=== PATIENT | male | born 1935 | race Caucasian/White ===

== ENCOUNTER 2019-07-27 08:19 | Outpatient (RCR) | payer MEDICARE, SELFPAY | END 2019-08-15 00:01 | LOC: SPT 08:19 | PROVIDERS: Family Provider Family Medicine; Visit Provider Family Medicine | DX: M25.511 Pain in right shoulder (principal) | CPT/HCPCS: 97110; 97161 ==

== ENCOUNTER 2019-08-16 06:00 | Outpatient (RCR) | payer MEDICARE, SELFPAY | END 2019-08-22 23:00 | disposition home or self-care (01) | LOC: SPT 06:00 | PROVIDERS: Family Provider Family Medicine; PCP Family Medicine; Visit Provider Family Medicine | DX: M25.511 Pain in right shoulder (principal) ==

== ENCOUNTER → 2019-10-12 08:47 | Outpatient (BNVA) | payer MEDICARE, SELFPAY | PROVIDERS: Family Provider Family Medicine; PCP Family Medicine; Visit Provider Nurse Practitioner Family | DX: N40.1 Benign prostatic hyperplasia with lower urinary tract symptoms (principal); R97.20 Elevated prostate specific antigen [PSA]; N13.8 Other obstructive and reflux uropathy | CPT/HCPCS: 81001; 84153 ==

== ENCOUNTER → 2020-02-13 07:46 | Outpatient (BNVA) | payer MEDICARE, SELFPAY | PROVIDERS: Family Provider Family Medicine; PCP Family Medicine; Referring Provider Family Medicine; Visit Provider Specialist | DX: G56.01 Carpal tunnel syndrome, right upper limb (principal); R20.0 Anesthesia of skin; R20.2 Paresthesia of skin | CPT/HCPCS: 95908 ==

== ENCOUNTER → 2020-04-01 14:35 | Outpatient (BNVA) | payer MEDICARE, SELFPAY | PROVIDERS: Family Provider Family Medicine; PCP Family Medicine; Referring Provider Family Medicine; Visit Provider Specialist | DX: G56.01 Carpal tunnel syndrome, right upper limb (principal) | CPT/HCPCS: 73110 ==

== ENCOUNTER → 2020-04-03 10:32 | Outpatient (BNVA) | payer MEDICARE, SELFPAY | PROVIDERS: PCP Family Medicine; Visit Provider Internal Medicine | DX: G56.01 Carpal tunnel syndrome, right upper limb (principal); Z20.828 Contact with and (suspected) exposure to other viral communicable diseases | CPT/HCPCS: 87635 ==

== ENCOUNTER 2020-04-05 06:27 | Day surgery (SDC) | payer MEDICARE, SELFPAY ==
[2020-04-04 14:40] VITALS: BMI 30.4
[2020-04-05 06:38] VITALS: PULSE 77; RESP 18; TEMP 36.8; O2SAT 98
--- NOTE | 2020-04-05 06:57 | W.PM.OPSUD ---
Surgery/Procedure H&P Update DATE OF PROCEDURE: April 05, 2020 DATE H&P PERFORMED: 04/01/20 H&P UPDATE INFORMATION: I have reviewed H&P completed within last 30 days, I have examined patient prior to procedure, No changes to prior documentation and H[place] in [facility] [place] date indicated PREOP DIAGNOSIS: Right carpal tunnel syndrome PLANNED PROCEDURE: Operation Date: 04/05/20 07:55 Proposed Procedures p Carpal Tunnel Release 57652 G56.01(Right) - Jessica Hernández MD Related Problem List Diagnoses (1) Right carpal tunnel syndrome:
[2020-04-05] MEDS: sodium chloride 0.9% 1,000 ML 30 ML IV (07:03)
[2020-04-05 07:11] LABS: Basophils # 0.1 10^3/uL (0.0-0.1); Eosinophils # 0.4 10^3/uL (0.0-0.8); Eosinophils % 5.7 %; Hematocrit 38.3 % (42.0-52.0); Hemoglobin 12.1 g/dL (11.7-16.6); Lymphocytes # 1.5 10^3/uL (0.8-4.8); Mean Corpuscular HGB Conc 31.6 g/dL (30.0-36.0); Mean Corpuscular Hemoglobin 27.4 pg (28.0-34.0); Mean Corpuscular Volume 86.8 fL (80-94); Mean Platelet Volume 9.5 fL (7.4-10.4); Monocytes # 0.5 10^3/uL (0.2-0.9); Monocytes % 8.4 %; Neutrophils # 3.81 10^3/uL (1.8-7.7); Neutrophils % 60.6 %; Nucleated Red Blood Cells % 0 %; Platelet Count 182 10^3/cmm (130-400); Red Blood Count 4.41 10^6/uL (4.1-5.3); Red Cell Distribution Width 14.3 % (12.1-15.1); White Blood Count 6.3 10^3/uL (4.0-10.0)
[2020-04-05 07:29] LABS: Alanine Aminotransferase 20 U/L (0-41); Albumin Level 4.1 g/dL (3.5-5.2); Alkaline Phosphatase 69 IU/L (40-130); Blood Urea Nitrogen 22 mg/dL (8-23); Calcium 9.5 mg/dL (8.5-10.5); Carbon Dioxide 25 mmol/L (22-29); Chloride 107 mmol/L (98-107); Creatinine Clr Calc Pharmacy 50.1195; Globulin 2.6 g/dL (1.3-4.6); Glucose 101 mg/dL (65-115); Osmolality Calculated 287 mOsm/kg (285-295); Sodium 140 mmol/L (136-145); Total Bilirubin 0.6 mg/dL (0.15-1.2); Total Protein 6.7 g/dL (6.6-8.7)
--- NOTE | 2020-04-05 07:29 | P.ANESASSM_ITS ---
Pre-Anesthetic Assessment Pre-Anesthetic Assessment: Height/Weight: Height 1.73 m Weight 90.718 kg Temp Pulse Resp Pulse Ox 98.2 F 77 18 98 04/05/20 06:38 04/05/20 06:38 04/05/20 06:38 04/05/20 06:38 Preop Diagnosis: Right carpal tunnel syndrome Proposed Procedure: Operation Date: 04/05/20 07:55 Proposed Procedures p Carpal Tunnel Release 05192 G56.01(Right) - Jessica Hernández MD Was Beta Wilma taken within 24 hours: N/A Social: Social History: No alcohol and No tobacco Exam: Pre-Anes Outpt Exam: oriented x 3, clear to auscultation bilaterally and regular rate & rhythm Airway: Submandibular: WNL Cervical ROM: WNL MP: 2 Dentition: False Pulmonary: Pulmonary: COPD CV/HEM: CV/HEM: Anemia, HTN and PVD Comments: s/p RCEA : : Chronic renal Insufficiency Hepatic: Hepatic: None reported GI: GI: GERD Metabolic: Metabolic: None reported Musc/skel: Musc/skel: None reported Neuropsych: Neuropsych: None reported Anesthetic Plan: ASA status: 3 Anesthesia: MAC Other: Basehor block Risk of > 500 ml blood loss (7ml/kg in children): No Meds/Allergies Current Medications: Current Medications Generic Name Dose Route Start Last Admin Trade Name Freq PRN Reason Stop Dose Admin Sodium Chloride 1,000 mls @ 30 ml s/hr 04/05/20 06:45 04/05/20 07:03 Sodium Chloride 0.9% IV 04/06/20 06:44 30 mls/hr .Q24H KEISHA Administration PFSH Anesthesia PFSH: Medical History Abnormal prostate exam BPH w urinary obs/LUTS Elevated PSA Surgical History H/O partial resection of colon H/O transurethral resection of prostate H/O umbilical hernia repair H/O: vasectomy History of knee replacement BILATERAL Hx of tonsillectomy Family History Father , AT AGE 75 CHF (congestive heart failure) Mother , AT AGE 92-COMPLICATIONS FROM A FALL No problems noted. Social History Smoking and tobacco status: former smoker Alcohol intake: current Alcohol intake frequency: holidays/special occasions only Marital status: Current occupational status: retired History of recent travel: No Data Anesthesia CBC & Chem 7: 04/05/20 06:58 04/05/20 06:58 Other Labs: Laboratory Results - last 48 hr 04/05/20 04/05/20 06:58 06:58 WBC 6.3 RBC 4.41 Hgb 12.1 Hct 38.3 L MCV 86.8 MCH 27.4 L MCHC 31.6 RDW 14.3 Plt Count 182 MPV 9.5 Neut % (Auto) 60.6 Lymph % (Auto) 24.0 [place] % (Auto) 8.4 Eos % (Auto) 5.7 Baso % (Auto) 1.0 Neut # (Auto) 3.81 Lymph # (Auto) 1.5 [place] # (Auto) 0.5 Eos # (Auto) 0.4 Baso # (Auto) 0.1 Nucleated RBC % (auto) 0 Nucleated RBCs # 0.0 Sodium 140 Chloride 107 Carbon Dioxide 25 BUN 22 Creatinine 1.2 GFR Calculation Not Reportable Glucose 101 Calculated Osmolality 287 Calcium 9.5 Total Bilirubin 0.6 ALT 20 Alkaline Phosphatase 69 Total Protein 6.7 Albumin 4.1 Globulin 2.6 Cardiac Studies: No Data to Display
[2020-04-05 08:20] LABS: Anion Gap 12.1 (5-19); Aspartate Amino Transferase 27 U/L (0-40); Potassium 4.1 mmol/L (3.5-5.1)
[2020-04-05 08:45] VITALS: BP 116/50; PULSE 68; RESP 18; TEMP 36.2; O2SAT 95
--- NOTE | 2020-04-05 09:01 | P.OP_ITS ---
Operative Report Date of procedure: April 05, 2020 Pre-op Diagnosis: Right carpal tunnel syndrome Post-op diagnosis: same Post-op Findings: Severe compression across the carpal canal with hourglass shape and purplish discoloration of the median nerve. Procedure Done: Right carpal tunnel release Specimens removed/disposition: None Pathology: none sent Surgeon: Jessica Hernández County Director Welfare: None Anesthesia: MAC (With Reina block) Estimated blood loss (mL): 5 Tourniquet time (min): 32 Tourniquet time: At 250 mmHg IV fluids (mL): 300 Complications: None Condition: stable Disposition: same day Brief History: This 84-year-old gentleman presented with complaints of severe pain in the hand secondary to symptoms consistent with carpal tunnel syndrome. He had numbness and tingling. He was unable to continue his activities of daily living. He was awakened at night. The patient wished to proceed with carpal tunnel release. Risks and complications were discussed with him and consents were signed. Procedure: The patient was brought to the operating theater. The patient had a Reina block with MAC. The tourniquet was elevated to 250 mmHg for a total tourniquet time of 32 minutes. The patient was also given Ancef 2 g preoperatively. The arm was then prepped and draped with DuraPrep in usual fashion with the arm draped free. A surgical pause was performed. At the time, the surgical pause, we confirmed the site and side of surgery. We also confirmed the patient's identity, appropriate and timely administration of preoperative antibiotics and preoperative surgical markings. An incision was then made along the thenar crease. The incision crossed the wrist joint in a curvilinear fashion. Dissection continued through skin and soft tissues using a scalpel. The palmaris longus was identified along with the transverse carpal ligament. Each of these was released carefully to avoid injury to the median nerve. We were able to dissect gently into the carpal canal which was noted to be quite tight with significant compression across the median nerve. The nerve was visualized and was an hourglass shape with purplish discoloration. The canal was subsequently palpated to assure there was no bony encroachment upon the canal. There was a quite thickened fibrous tissue within the canal, and this was opened longitudinally as well. The canal was then palpated distally and proximally to assure that my small finger was passed easily without impingement. Finding this to be so, attention was directed to cl janina. The wound was irrigated with ropivacaine plain. It was then closed with 3-0 nylon in an interrupted mattress fashion. Sterile dressing was then placed consisting of Xeroform gauze, fluffed fluffs, sterile soft roll, a volar splint, and an Fox wrap. The tourniquet was released after 32 minutes. There were no complications. There were no specimens. The procedure was well tolerated. Plan is the patient will be discharged home. Associated Problem List Diagnoses (1) Right carpal tunnel syndrome:
[2020-04-05 09:04] VITALS: BP 143/58; PULSE 60; RESP 18; O2SAT 96
--- NOTE | 2020-04-05 09:33 | PM.PACU ---
PACU note PACU note: VSS, good pain control. Post-Anesthesia Exam: awake Disposition: discharged
== END 2020-04-05 09:46 | disposition home or self-care (01) ==
PROVIDERS: PCP Family Medicine; Visit Provider Specialist
PROC: (CPT 64721; principal; 2020-04-05 07:55)
DX: G56.01 Carpal tunnel syndrome, right upper limb (principal); J44.9 Chronic obstructive pulmonary disease, unspecified; D64.9 Anemia, unspecified; I10 Essential (primary) hypertension; Z87.891 Personal history of nicotine dependence
CPT/HCPCS: 64721; 12345; 36415; 80053; 85025; J0690; J2704; J3010; J3490; J7030

== ENCOUNTER → 2020-04-11 14:14 | Outpatient (BNVA) | payer MEDICARE, SELFPAY | PROVIDERS: PCP Family Medicine; Referring Provider Dermatology; Visit Provider Dermatology | DX: Z85.828 Personal history of other malignant neoplasm of skin (principal); L57.0 Actinic keratosis; L85.3 Xerosis cutis; D17.20 Benign lipomatous neoplasm of skin and subcutaneous tissue of unspecified limb; D18.01 Hemangioma of skin and subcutaneous tissue | CPT/HCPCS: 17004; 99203 ==

== ENCOUNTER → 2020-04-15 08:41 | Outpatient (BNVA) | payer MEDICARE, SELFPAY | PROVIDERS: PCP Family Medicine; Visit Provider Urology | DX: R97.20 Elevated prostate specific antigen [PSA] (principal); N13.8 Other obstructive and reflux uropathy; N40.1 Benign prostatic hyperplasia with lower urinary tract symptoms; N48.9 Disorder of penis, unspecified; R39.89 Other symptoms and signs involving the genitourinary system | CPT/HCPCS: 81001; 84153 ==

== ENCOUNTER → 2020-05-10 10:00 | Outpatient (BNVA) | payer MEDICARE, SELFPAY | PROVIDERS: PCP Family Medicine; Visit Provider Urology | DX: N48.1 Balanitis (principal); N48.9 Disorder of penis, unspecified | CPT/HCPCS: 88304; 88305 ==

== ENCOUNTER 2020-07-01 18:37 | Observation (INO) | payer MEDICARE, SELFPAY ==
[2020-07-01 18:55] VITALS: BP 122/76; PULSE 110; RESP 14; TEMP 36.9; O2SAT 97; BMI 31.3
--- NOTE | 2020-07-01 19:07 | CTR_ITS ---
PROCEDURE INFORMATION: Exam: CT Abdomen And Pelvis With Contrast Exam date and time: 07/01/2020 10:47 PM Age: 84 years old Clinical indication: Other: Rectal bleeding; Prior surgery; Surgery date: 6+ months; Surgery type: Colon resection, prostate resection, hernia; Additional info: Gib TECHNIQUE: Imaging protocol: Computed tomography of the abdomen and pelvis with intravenous contrast. Radiation optimization: All CT scans at this facility use at least one of these dose optimization techniques: automated exposure control; mA and/or kV adjustment per patient size (includes targeted exams where dose is matched to clinical indication); or iterative reconstruction. Contrast material: VISI; Contrast volume: 95 ml; Contrast route: INTRAVENOUS (IV); COMPARISON: CT Chest/Abdomen/Pelvis wo IV 08/15/2018 7:59 PM RADIATION DOSE METRICS: Total DLP (mGy-cm): 2621.99 FINDINGS: Lungs: There is an unchanged 5 mm nodule medial left lower lobe image 5. There is subpleural atelectasis of the dependent portions of the lungs. Liver: Unremarkable.No mass. Gallbladder and bile ducts: There has been a cholecystectomy. There is no common bile duct dilation. Pancreas: Normal. No ductal dilation. Spleen: Normal. No splenomegaly. Adrenal glands: Normal. No mass. Kidneys and ureters: There is no evidence of hydronephrosis. There is no evidence of renal calcifications. There are multiple renal hypodensities that cannot be further characterized on the current examination. Stomach and bowel: There are postoperative changes of a partial right colectomy. Extensive diverticulosis is present in the distal colon. The wall of the distal colon is thickened but collapsed. This appearance may reflect lack of distention however mild colitis cannot be excluded. There is moderately excessive colonic stool content. There is no evidence of intestinal perforation or obstruction. No significant rectal wall thickening. Appendix: No evidence of appendicitis. Intraperitoneal space: Unremarkable. No free air. No significant fluid collection. Vasculature: The aorta demonstrates moderate atherosclerotic calcification. Lymph nodes: Unremarkable.No enlarged lymph nodes. Urinary bladder: There is nonspecific bladder wall thickening. This may be related to incomplete distention. Reproductive: Unremarkable as visualized. Bones/joints: Unremarkable. No acute fracture. Soft tissues: There is small bilateral fat filled inguinal hernias. CT/CT abdomen pelvis w con* [id number] IMPRESSION: 1. The wall of the distal colon is thickened but collapsed. This appearance may reflect lack of distention however mild colitis cannot be excluded. There is diverticulosis without diverticulitis. 2. Unchanged 5 mm nodule medial left lower lobe. Radiation Dose CTDIVOL = (mGy): DLP = 2621.99 (mGy-cm)
[2020-07-01 21:47] LABS: Basophils # 0.1 10^3/uL (0.0-0.1); Eosinophils # 0.1 10^3/uL (0.0-0.8); Eosinophils % 1.2 %; Hematocrit 31.5 % (42.0-52.0); Hemoglobin 10.2 g/dL (11.7-16.6); Lymphocytes # 0.8 10^3/uL (0.8-4.8); Mean Corpuscular HGB Conc 32.4 g/dL (30.0-36.0); Mean Corpuscular Hemoglobin 28.7 pg (28.0-34.0); Mean Corpuscular Volume 88.5 fL (80-94); Mean Platelet Volume 9.7 fL (7.4-10.4); Monocytes # 0.6 10^3/uL (0.2-0.9); Neutrophils % 83.4 %; Nucleated Red Blood Cells % 0 %; Platelet Count 227 10^3/cmm (130-400); Red Blood Count 3.56 10^6/uL (4.1-5.3); Red Cell Distribution Width 14.5 % (12.1-15.1); White Blood Count 9.5 10^3/uL (4.0-10.0)
[2020-07-01 22:02] VITALS: BP 119/60; PULSE 88; O2SAT 97
[2020-07-01 22:08] LABS: Lactate (Lactic Acid level) 1.6 mmol/L (0.5-2.2)
[2020-07-01 22:18] LABS: Partial Thromboplastin Time 31.2 SECONDS (23.9-36.7)
[2020-07-01 22:19] LABS: Alanine Aminotransferase 13 U/L (0-41); Albumin Level 3.6 g/dL (3.5-5.2); Alkaline Phosphatase 62 IU/L (40-130); Anion Gap 15.3 (5-19); Aspartate Amino Transferase 14 U/L (0-40); Blood Urea Nitrogen 25 mg/dL (8-23); Calcium 8.6 mg/dL (8.5-10.5); Carbon Dioxide 21 mmol/L (22-29); Chloride 107 mmol/L (98-107); Glucose 169 mg/dL (65-115); Lipase 26 U/L (13-60); NT Pro B Type Natriuretic Pept 296 pg/mL (0-450); Osmolality Calculated 296 mOsm/kg (285-295); Potassium 4.3 mmol/L (3.5-5.1); Sodium 139 mmol/L (136-145); Total Bilirubin 0.3 mg/dL (0.15-1.2); Total Protein 5.6 g/dL (6.6-8.7)
[2020-07-01 22:21] LABS: Add Urine Microscopic? NO
[2020-07-01 22:37] LABS: Bilirubin Urine Neg (Negative); Blood Urine Neg (Negative); Glucose Urine UA Norm (Normal); Ketones Urine Negative (Negative); Leukocyte Esterase Urine Negative (Negative); Nitrate Urine Negative (Negative); Protein Urine Neg (Negative); Urine Appearance Clear (CLEAR); Urine Color Yellow (Yellow); Urobilinogen Urine Norm (Negative); pH Urine 5 (5-7)
--- NOTE | 2020-07-01 22:41 | W.ED.GIBLEED ---
HPI - GI Bleed General: Chief complaint: GI Bleed Stated complaint: passing blood Time Seen by Provider: 07/01/20 21:22 Source: patient Mode of arrival: ambulatory Limitations: no limitations History of Present Illness: HPI Narrative: Patient is an 84-year-old gentleman who presents to the emergency department with lower GI bleeding. He noticed blood in his stool about 4 PM today and he has had multiple episodes of blood in his stool. It is blood mixed with stool blood is bright red blood. He denies any dizziness, abdominal pain, nausea or vomiting. He denies any fever. In early 2019 he said he had similar symptoms and required surgery at that time at [facility] in [place]. 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 The patient states he has been doing well since then. complaint: gross hematochezia Onset (ago): hour(s) (4) Severity: moderate Relieving factors: none Exacerbating factors: none Context: history of GI bleed Associated symptoms: Denies abdominal pain, chills, easy bruising, epistaxis, fever(s), headache(s), malaise, nausea, other bleeding, poor appetite, rash, syncope, vomiting or weakness Review of Systems General: Reports: 10 or more systems reviewed and unremarkable except in HPI and below Const: Denies: fever(s), chills or malaise Eyes: Denies: change in vision or blurry vision ENMT: Denies: epistaxis Card: Denies: syncope Resp: Denies: dyspnea, productive cough or non-productive cough GI: Denies: abdominal pain, nausea or vomiting : Denies: flank pain, dysuria, urinary frequency, urinary urgency or urinary hesitancy Musc: Denies: neck pain, back pain or extremity swelling Skin/Breast: Denies: rash Neuro: Denies: headache(s) Endo: Denies: polyuria, polydipsia or tired all the time James/Lymph: Denies: easy bruising PFSH ED PFSH: Medical History (Updated 07/02/20 @ 12:42 by Alhaji Urbina MD, [facility]) Abnormal prostate exam BPH w urinary obs/LUTS Elevated PSA History of nonmelanoma skin cancer Surgical History H/O partial resection of colon H/O transurethral resection of prostate H/O umbilical hernia repair H/O: vasectomy History of knee replacement BILATERAL Hx of tonsillectomy Family History Father , AT AGE 75 CHF (congestive heart failure) Mother , AT AGE 92-COMPLICATIONS FROM A FALL No problems noted. Social History Smoking and tobacco status: former smoker Alcohol intake: current Alcohol intake frequency: holidays/special occasions only Marital status: Current occupational status: retired History of recent travel: No Physical Exam Const: COMMON NORMALS: no acute distress, average body habitus, patient oriented x3, no limitations, healthy appearing, alert and well nourished HENMT: COMMON NORMALS: normocephalic, atraumatic and moist oral mucous membranes HEAD & SCALP: normocephalic and atraumatic Eye: COMMON NORMALS: Equal, round and reactive pupils present, EOMs intact bilaterally, conjunctivae normal and no scleral icterus CONJUNCTIVA: Yes conjunctivae normal PUPIL: Yes Equal, round and reactive pupils present Neck/C-Spine: COMMON NORMALS: no meningeal signs and no JVD Resp: COMMON NORMALS: normal respiratory effort, No retractions, No use of accessory muscles, clear to auscultation bilaterally and percussion normal AUSCULTATION: clear to auscultation bilaterally PERCUSSION: percussion normal Cardio: COMMON NORMALS: no JVD, regular rate, regular rhythm, S1 normal heart sound present, S2 normal heart sound present, No gallops present (Cardio), No clicks present (Cardio), No murmurs present (Cardio), No rub (Cardio) and Peripheral pulses 2+ throughout RATE: regular rate RHYTHM: regular rhythm HEART SOUNDS: S1 normal heart sound present and S2 normal heart sound present PERIPHERAL PULSES: Peripheral pulses 2+ throughout GI: COMMON NORMALS: Normal to inspection, nondistended, normoactive bowel sounds present, Soft to palpation, non-tender, No hepatosplenomegaly present, no masses and no bruits PALPATION: Yes Soft to palpation and Yes No hepatosplenomegaly present Extremity: COMMON NORMALS: normal to inspection, full ROM, capillary refill normal and no calf tenderness GENERAL: Yes edema Neuro: COMMON NORMALS: patient oriented x3 SENSORIUM/ORIENTATION: Yes alert MENINGEAL SIGNS: Yes no meningeal signs Skin: COMMON NORMALS: no rashes or lesions noted, no wounds, turgor normal, no jaundice, no petechiae and no mottling GENERAL SKIN EXAM: no rashes or lesions noted and turgor normal Course ED course: 84-year-old male presents to the emergency department with painless lower GI bleeding. While in the emergency department I witnessed 1 episode of his bowel movements and he was frankly bloody with some stool in it. The patient has a hemoglobin drop from about 12.1 3 months ago to about 10.2 today. He is hemodynamically stable. He has had a history of hemicolectomy following a terminal ileum stricture. Because of his high risk he is admitted to the hospital for further evaluation and possible endoscopy. Consultations: Consultation #1: Dr. Muñiz, who kindly accepted the patient to his service. Vital Signs: Vital signs: Vital Signs Temperature 98.0 F 07/02/20 11:23 Pulse Rate 81 07/02/20 11:23 Respiratory Rate 18 07/02/20 11:23 Blood Pressure 99/59 07/02/20 11:23 Pulse Oximetry 99 07/02/20 11:23 MDM - GI Bleed MDM Narrative: Medical decision making narrative: 84-year-old male with lower GI bleeding. He is hemodynamically stable and is admitted for further evaluation and management. Medical Records: Attestation: I reviewed the patient's medical records. Lab Data: Attestation: I reviewed the patient's lab results. Labs: Lab Results 07/01/20 07/01/20 07/01/20 Range/Units 21:30 21:30 21:30 WBC 9.5 (4.0-10.0) 10^3/ uL RBC 3.56 L (4.1-5.3) 10^6/u L Hgb 10.2 L (11.7-16.6) g/dL Hct 31.5 L (42.0-52.0) % MCV 88.5 (80-94) fL MCH 28.7 (28.0-34.0) pg MCHC 32.4 (30.0-36.0) g/dL RDW 14.5 (12.1-15.1) % Plt Count 227 (130-400) 10^3/c mm MPV 9.7 (7.4-10.4) fL Neut % (Auto) 83.4 % Lymph % (Auto) 8.0 % [place] % (Auto) 6.0 % Eos % (Auto) 1.2 % Baso % (Auto) 1.0 % Neut # (Auto) 7.90 H (1.8-7.7) 10^3/u L Lymph # (Auto) 0.8 (0.8-4.8) 10^3/u L [place] # (Auto) 0.6 (0.2-0.9) 10^3/u L Eos # (Auto) 0.1 (0.0-0.8) 10^3/u L Baso # (Auto) 0.1 (0.0-0.1) 10^3/u L Nucleated RBC % (a uto) 0 % Nucleated RBCs # 0.0 /100WBC APTT 31.2 (23.9-36.7) SECO NDS Sodium 139 (136-145) mmol/L Potassium 4.3 (3.5-5.1) mmol/L Chloride 107 (98-107) mmol/L Carbon Dioxide 21 L (22-29) mmol/L Anion Gap 15.3 (5-19) BUN 25 H (8-23) mg/dL Creatinine 1.5 H (0.7-1.2) mg/dL GFR Calculation Not Reportable Glucose 169 H (65-115) mg/dL Calculated Osmolal ity 296 H (285-295) mOsm/k g Lactate (0.5-2.2) mmol/L Calcium 8.6 (8.5-10.5) mg/dL Total Bilirubin 0.3 (0.15-1.2) mg/dL AST 14 (0-40) U/L ALT 13 (0-41) U/L Alkaline Phosphata se 62 (40-130) IU/L NT-Pro-B Natriuret Pep 296 (0-450) pg/mL Total Protein 5.6 L (6.6-8.7) g/dL Albumin 3.6 (3.5-5.2) g/dL Globulin 2.0 (1.3-4.6) g/dL Lipase 26 (13-60) U/L Urine Color (Yellow) Urine Appearance (CLEAR) Urine pH (5-7) Ur Specific Gravit y (1.005-1.030) Urine Protein (Negative) Urine Glucose (UA) (Normal) Urine Ketones (Negative) Urine Blood (Negative) Urine Nitrate (Negative) Urine Bilirubin (Negative) Urine Urobilinogen (Negative) mg/dL Ur Leukocyte Marlen ase (Negative) Blood Type Rho(D) Type Antibody Screen Crossmatch 07/01/20 07/01/20 07/01/20 Range/Units 21:30 21:30 21:50 WBC (4.0-10.0) 10^3/ uL RBC (4.1-5.3) 10^6/u L Hgb (11.7-16.6) g/dL Hct (42.0-52.0) % MCV (80-94) fL MCH (28.0-34.0) pg MCHC (30.0-36.0) g/dL RDW (12.1-15.1) % Plt Count (130-400) 10^3/c mm MPV (7.4-10.4) fL Neut % (Auto) % Lymph % (Auto) % [place] % (Auto) % Eos % (Auto) % Baso % (Auto) % Neut # (Auto) (1.8-7.7) 10^3/u L Lymph # (Auto) (0.8-4.8) 10^3/u L [place] # (Auto) (0.2-0.9) 10^3/u L Eos # (Auto) (0.0-0.8) 10^3/u L Baso # (Auto) (0.0-0.1) 10^3/u L Nucleated RBC % (a uto) % Nucleated RBCs # /100WBC APTT (23.9-36.7) SECO NDS Sodium (136-145) mmol/L Potassium (3.5-5.1) mmol/L Chloride (98-107) mmol/L Carbon Dioxide (22-29) mmol/L Anion Gap (5-19) BUN (8-23) mg/dL Creatinine (0.7-1.2) mg/dL GFR Calculation Glucose (65-115) mg/dL Calculated Osmolal ity (285-295) mOsm/k g Lactate 1.6 (0.5-2.2) mmol/L Calcium (8.5-10.5) mg/dL Total Bilirubin (0.15-1.2) mg/dL AST (0-40) U/L ALT (0-41) U/L Alkaline Phosphata se (40-130) IU/L NT-Pro-B Natriuret Pep (0-450) pg/mL Total Protein (6.6-8.7) g/dL Albumin (3.5-5.2) g/dL Globulin (1.3-4.6) g/dL Lipase (13-60) U/L Urine Color Yellow (Yellow) Urine Appearance Clear (CLEAR) Urine pH 5 (5-7) Ur Specific Gravit y 1.020 (1.005-1.030) Urine Protein Neg (Negative) Urine Glucose (UA) Norm (Normal) Urine Ketones Negative (Negative) Urine Blood Neg (Negative) Urine Nitrate Negative (Negative) Urine Bilirubin Neg (Negative) Urine Urobilinogen Norm (Negative) mg/dL Ur Leukocyte Marlen ase Negative (Negative) Blood Type O Positive Rho(D) Type Positive Antibody Screen Negative Crossmatch See Detail Imaging Data^: CT Abd/Pel: Attestation: I personally reviewed and interpreted this imaging study as follows: Radiologist's impression: [address] [address] [address] Scan Report Signed Patient: Watson Webber #: [id number] : 6Acct#:[id number] Age/Sex: 84 / MADM Date: 07/01/20 Loc: ERRoom/Bed: Attending Dr: Ordering Provider/Ordering MD: Yi Grant Date of Service: 07/01/20 Procedure(s): CT abdomen pelvis w con* [id number] Accession Number(s): [id number] Report Number: [id number] PROCEDURE INFORMATION: Exam: CT Abdomen And Pelvis With Contrast Exam date and time: 07/01/2020 10:47 PM Age: 84 years old Clinical indication: Other: Rectal bleeding; Prior surgery; Surgery date: 6+ months; Surgery type: Colon resection, prostate resection, hernia; Additional info: Gib TECHNIQUE: Imaging protocol: Computed tomography of the abdomen and pelvis with intravenous contrast. Radiation optimization: All CT scans at this facility use at least one of these dose optimization techniques: automated exposure control; mA and/or kV adjustment per patient size (includes targeted exams where dose is matched to clinical indication); or iterative reconstruction. Contrast material: VISI; Contrast volume: 95 ml; Contrast route: INTRAVENOUS (IV); COMPARISON: CT Chest/Abdomen/Pelvis wo IV 08/15/2018 7:59 PM RADIATION DOSE METRICS: Total DLP (mGy-cm): 2621.99 FINDINGS: Lungs: There is an unchanged 5 mm nodule medial left lower lobe image 5. There is subpleural atelectasis of the dependent portions of the lungs. Liver: Unremarkable.No mass. Gallbladder and bile ducts: There has been a cholecystectomy. There is no common bile duct dilation. Pancreas: Normal. No ductal dilation. Spleen: Normal. No splenomegaly. Adrenal glands: Normal. No mass. Kidneys and ureters: There is no evidence of hydronephrosis. There is no evidence of renal calcifications. There are multiple renal hypodensities that cannot be further characterized on the current examination. Stomach and bowel: There are postoperative changes of a partial right colectomy. Extensive diverticulosis is present in the distal colon. The wall of the distal colon is thickened but collapsed. This appearance may reflect lack of distention however mild colitis cannot be excluded. There is moderately excessive colonic stool content. There is no evidence of intestinal perforation or obstruction. No significant rectal wall thickening. Appendix: No evidence of appendicitis. Intraperitoneal space: Unremarkable. No free air. No significant fluid collection. Vasculature: The aorta demonstrates moderate atherosclerotic calcification. Lymph nodes: Unremarkable.No enlarged lymph nodes. Urinary bladder: There is nonspecific bladder wall thickening. This may be related to incomplete distention. Reproductive: Unremarkable as visualized. Bones/joints: Unremarkable. No acute fracture. Soft tissues: There is small bilateral fat filled inguinal hernias. CT/CT abdomen pelvis w con* [id number] IMPRESSION: 1. The wall of the distal colon is thickened but collapsed. This appearance may reflect lack of distention however mild colitis cannot be excluded. There is diverticulosis without diverticulitis. 2. Unchanged 5 mm nodule medial left lower lobe. Radiation Dose CTDIVOL = (mGy): DLP = 2621.99 (mGy-cm) Dictated By:Tatianna Ojeda Signed By:Libby Ojeda Date/Time:07/01/202334 DD/ 32 Discharge Plan Discharge Patient Disposition: Admitted As Inpatient Admit Provider: Cori Muñiz Clinical Impression: Lower gastrointestinal hemorrhage, Acute blood loss anemia, SANTIAGO (acute kidney injury) Condition: Stable Coding Level of Care Code ED Steel Rod Buster for Chg Fwd Exam Comprehensive
[2020-07-01] MEDS: iodixanol 320 mg/mL 100mL Btl IV (23:00)
[2020-07-02] VITALS (8 sets, daily range): BP systolic 99–132; BP diastolic 49–69; PULSE 70–85; RESP 17–18; TEMP 36.4–36.7; O2SAT 96–99
--- NOTE | 2020-07-02 00:26 | P.HP_ITS ---
Providers/Chief Complaint Primary Care Provider: Brendon Rhodes MD Chief Complaint: passing blood History of Present Illness Watson Webber is a 84 year old male who came history of diverticulosis came in with chief complaint of bright bleed per rectum. Patient is stating that he was not constipated for last few days, he has not noticed any diarrhea, abdominal pain nausea or vomiting, today when he went to bathroom he noticed toilet bowl full of blood. He is not on any anticoagulant agent. Previous colonoscopies revealed polyps which were benign in nature and diverticulosis. He is describing bleeding as bright bleed per rectum, he has not noticed any clots or dark-colored stools. He lives alone and is independent for daily activities. No active chest pain shortness of breath nausea, vomiting, fever, cough, headaches, blurry vision. Diagnosis in the ER revealed normal hemodynamics, initially he was tachycardic which improved with fluid resuscitation, he has had 7-10 episodes of large bloody bowel movements in the ER hence decision was made to observe him overnight, at the time of evaluation he is not complaining of active abdominal pain, repeat hemoglobin dropped to 9.8 from 10.2 in few hours. Review of Systems Const: Denies: fever(s), chills, body aches or fatigue Eyes: Denies: change in vision ENMT: Denies: throat pain Card: Denies: chest pain Resp: Denies: dyspnea GI: Reports: hematochezia; Denies: abdominal pain : Denies: flank pain Musc: Denies: neck pain Skin/Breast: Denies: rash Neuro: Denies: headache(s) Psych: Denies: anxiety Endo: Denies: polyuria James/Lymph: Denies: easy bruising All/Imm: Denies: urticaria Medications/Allergies Home Medications Medication Instructions Recorded Confirmed Last Taken Type aspirin 81 mg tablet,delayed 81 mg PO DAILY 10/12/19 07/01/20 07/01/20 History release levothyroxine 75 mcg capsule 75 mcg PO DAILY 10/12/19 07/01/20 07/01/20 History ropinirole 1 mg tablet 4 mg PO DAILY tab 10/12/19 07/01/20 07/01/20 History simvastatin 40 mg tablet 20 mg PO DAILY tab 10/12/19 07/01/20 06/30/20 History triamterene 37.5 1 tab PO DAILY 10/12/19 07/01/20 07/01/20 History mg-hydrochlorothiazide 25 mg tablet Vitamin D3 1 cap PO DAILY 07/01/20 07/01/20 Unknown History tamsulosin 0.4 mg PO BID 07/01/20 07/01/20 Unknown History Allergies Allergy/AdvReac Type Severity Reaction Status Date / Time naproxen [From Aleve] Allergy SWELLING Verified 07/01/20 21:02 ROOF OF MOUTH PFSH Acute PFSH: Medical History (Updated 07/02/20 @ 02:42 by Cori Muñiz MD) Abnormal prostate exam BPH w urinary obs/LUTS Elevated PSA History of nonmelanoma skin cancer Surgical History H/O partial resection of colon H/O transurethral resection of prostate H/O umbilical hernia repair H/O: vasectomy History of knee replacement BILATERAL Hx of tonsillectomy Family History Father , AT AGE 75 CHF (congestive heart failure) Mother , AT AGE 92-COMPLICATIONS FROM A FALL No problems noted. Social History Smoking and tobacco status: former smoker Alcohol intake: current Alcohol intake frequency: holidays/special occasions only Marital status: Current occupational status: retired History of recent travel: No Vitals/I&O/Wt Last Vital Signs Temp 98.5 F 07/01/20 18:55 Pulse 84 07/02/20 00:04 Resp 14 07/01/20 18:55 BP 120/50 07/02/20 00:04 Pulse Ox 98 07/02/20 00:04 Weight last 48 hrs Weight 90.718 kg Physical Exam Narrative: EXAM NARRATIVE: Elderly male Appears younger than stated age Euvolemic No active distress Abdomen distended, nontender, bowel sound present Lower extremity no edema gangrene ulcer S1, S2 no tachycardia or signs of heart failure No active acute respiratory distress EOMI, PERRLA GCS 15 Awake alert oriented x3 Skin does not show any ischemia gangrene or ulcer Lower extremity without any edema Multiple episodes of bright bleed per rectum in the ER Data : 07/02/20 01:39 07/01/20 21:30 A&P Assessment and plan (1) Hematochezia: Status: Acute (2) Acute blood loss anemia: Status: Acute (3) Normocytic anemia: Status: Acute (4) SANTIAGO (acute kidney injury): Status: Acute Additional A&P Information Acute normocytic anemia/lower GI bleed Hematochezia Not on any anticoagulant agent, no history of peptic ulcer disease, previous col onoscopy revealed diverticulosis and benign polyps No diverticulitis noted Patient is not septic, hemodynamically stable I would hold off on transfusion until his hemoglobin drops below 8, keep PRBC on standby Keep him n.p.o., serial H&H His bleeding is most likely diverticular Protonix 40 IV twice daily D5 half-normal saline fluid resuscitation No acute indication for surgical consult, kindly reevaluate in the morning Acute kidney injury Patient has history of BPH, takes tamsulosin at home, monitor urine output, bladder scan as needed, Normal potassium, rule out post renal etiology for increasing creatinine, will obtain renal ultrasound, patient is not taking any nephrotoxic agents at home, there is no significant drop in hemoglobin to cause prerenal SANTIAGO DVT prophylaxis SCDs N.p.o. DNR/DNI, goals of care discussed with the patient in the ER Attestations Medical Necessity Statement*: Anticipating discharge in less than 48 hours continued overnight monitoring because of active hematochezia and drop in hemoglobin Time Spent in Patient Care: (>than 50% of time spent in counselling and/or direct pt care on unit) . 50mins Coding Level of Care Code Acute Employee Communications Manager for Swetha Morton Diagnoses Hematochezia K92.1 Acute blood loss anemia D62 Normocytic anemia D64.9 SANTIAGO (acute kidney injury) N17.9
[2020-07-02 01:52] LABS: Hemoglobin 9.8 g/dL (11.7-16.6)
[2020-07-02] MEDS: dextrose 5%-sod chloride 0.45% 1,000 ML 75 ML IV ×2 (02:51→16:31)
[2020-07-02 04:57] LABS: Basophils # 0.1 10^3/uL (0.0-0.1); Basophils % 0.6 %; Eosinophils % 0.2 %; Hematocrit 30.3 % (42.0-52.0); Hemoglobin 9.3 g/dL (11.7-16.6); Lymphocytes # 0.9 10^3/uL (0.8-4.8); Lymphocytes % 9.3 %; Mean Corpuscular HGB Conc 30.7 g/dL (30.0-36.0); Mean Corpuscular Hemoglobin 28.4 pg (28.0-34.0); Mean Corpuscular Volume 92.4 fL (80-94); Monocytes # 0.5 10^3/uL (0.2-0.9); Neutrophils # 8.24 10^3/uL (1.8-7.7); Neutrophils % 84.5 %; Nucleated Red Blood Cells % 0 %; Platelet Count 207 10^3/cmm (130-400); Red Blood Count 3.28 10^6/uL (4.1-5.3); Red Cell Distribution Width 14.6 % (12.1-15.1); White Blood Count 9.8 10^3/uL (4.0-10.0)
[2020-07-02 05:20] LABS: Anion Gap 15.7 (5-19); Blood Urea Nitrogen 24 mg/dL (8-23); Calcium 8.4 mg/dL (8.5-10.5); Carbon Dioxide 22 mmol/L (22-29); Chloride 107 mmol/L (98-107); Glucose 156 mg/dL (65-115); Osmolality Calculated 297 mOsm/kg (285-295); Potassium 4.7 mmol/L (3.5-5.1); Sodium 140 mmol/L (136-145)
--- NOTE | 2020-07-02 09:36 | PC.CHAP ---
Pastoral Care Encounter/Spiritual Assessment Type of Contact [] Declined terrazzo worker apprentice visit [] Patient/Family/Request visit [] Outpatient visit [] Follow-up visit [] Physician referral [] Code/Alert [x] Routine visit [] Staff referral [] Actively dying [] Patient sleeping [] Family support [] [] Out of room [] Palliative care [] [] Receiving care in room [] Pre-surgical visit [] Trauma [] Long length of stay [] ICU visit [] Other: Relational/Emotional Strength [] Patient feels connected with others/family/visitors/staff [] Distress [] Loneliness/isolation [] Abandonment Spirituality of Patient [] Person of Vi [] Attends Scientologist of their Iv [] Believes in Prayer [] Reads Bible or Pentecostalism materials [] There are Spiritual issues to be addressed Strapper Operator Interventions [x] Prayer [x] Active listening [x] Non-anxious presence [x] Spiritual/emotional support [] Crisis/trauma care [] Spiritual counseling [] Bereavement support [] Provided bereavement packet [] Provided Bible/devotional materials [] Provided toy/stuffed animal, coloring book to patient or family member [] Provided Communion [] Anointing/[place] [] Salvation [x] Completed spiritual assessment [] Other: Impact on Illness or Injury [] Angry [] Fearful [] Anxious [] Often cries [] Exhaustion [] Unable to work [] Unable to attend latter day [] Unable to walk/stand [] Unable to read [] Unable to drive [] Unable to eat/drink [] Unable to sleep [] Unable to be with family [] Patient intubated [] Other: Summary patient feeling better.. wants to go home Time spent with patient 10 min
--- NOTE | 2020-07-02 09:37 | PC.CHAP ---
Pastoral Care Encounter/Spiritual Assessment Type of Contact [] Declined derivatives trader visit [] Patient/Family/Request visit [] Outpatient visit [] Follow-up visit [] Physician referral [] Code/Alert [] Routine visit [] Staff referral [] Actively dying [x] Patient sleeping [] Family support [] [] Out of room [] Palliative care [] [] Receiving care in room [] Pre-surgical visit [] Trauma [] Long length of stay [] ICU visit [] Other: Relational/Emotional Strength [] Patient feels connected with others/family/visitors/staff [] Distress [] Loneliness/isolation [] Abandonment Spirituality of Patient [] Person of Vi [] Attends Yarsanism of their Vi [] Believes in Prayer [] Reads Bible or Scientology materials [] There are Spiritual issues to be addressed Ironer Hand Interventions [x] Prayer [] Active listening [] Non-anxious presence [] Spiritual/emotional support [] Crisis/trauma care [] Spiritual counseling [] Bereavement support [] Provided bereavement packet [] Provided Bible/devotional materials [] Provided toy/stuffed animal, coloring book to patient or family member [] Provided Communion [] Anointing/[place] [] Salvation [x] Completed spiritual assessment [] Other: Impact on Illness or Injury [] Angry [] Fearful [] Anxious [] Often cries [] Exhaustion [] Unable to work [] Unable to attend zoroastrian [] Unable to walk/stand [] Unable to read [] Unable to drive [] Unable to eat/drink [] Unable to sleep [] Unable to be with family [] Patient intubated [] Other: Summary Time spent with patient
[2020-07-02 09:52] LABS: Hematocrit 29.9 % (42.0-52.0); Hemoglobin 9.5 g/dL (11.7-16.6)
[2020-07-02] MEDS: levothyroxine 150 mcg Tablet 75 MCG PO (10:02)
[2020-07-02] MEDS: tamsulosin 0.4 mg Capsule PO ×2 (10:02→17:26)
[2020-07-02] MEDS: pantoprazole 40 mg SDV IVP ×2 (10:03→17:26)
--- NOTE | 2020-07-02 10:50 | PM.PN ---
Subjective Subjective: Interval history: No Fresh BRBPR, currently denies any nausea vomiting, abdominal pain, chest pain, dizziness, shortness of breath. Has remained afebrile vitals are stable. Willing to eat. Other vitals and labs have been reviewed. Medications: Reviewed: Yes Vitals/I&O/Wt Last Vital Signs Temp 97.7 F 07/02/20 07:25 Pulse 71 07/02/20 07:25 Resp 17 07/02/20 07:25 BP 112/49 07/02/20 07:25 Pulse Ox 97 07/02/20 07:25 07/01/20 07/02/20 07/02/20 22:59 06:59 14:59 Output Total 100 / 100 Balance -100 / -100 Weight last 48 hrs Weight 90.718 kg Physical Exam Const: COMMON NORMALS: patient oriented x3 HENMT: COMMON NORMALS: normocephalic and atraumatic HEAD & SCALP: normocephalic and atraumatic Eye: COMMON NORMALS: no scleral icterus Resp: COMMON NORMALS: normal respiratory effort EFFORT & INSPECTION: Yes symmetric chest movement Cardio: COMMON NORMALS: regular rate, regular rhythm, S1 normal heart sound present, S2 normal heart sound present, No gallops present (Cardio), No murmurs present (Cardio), No rub (Cardio) and Peripheral pulses 2+ throughout RATE: regular rate RHYTHM: regular rhythm HEART SOUNDS: S1 normal heart sound present and S2 normal heart sound present PERIPHERAL PULSES: Peripheral pulses 2+ throughout GI: COMMON NORMALS: Normal to inspection, nondistended, normoactive bowel sounds present, Soft to palpation, non-tender, No hepatosplenomegaly present and no masses AUSCULTATION: Yes normoactive bowel sounds PALPATION: Yes Soft to palpation and Yes No hepatosplenomegaly present RECTAL EXAM: Yes deferred Extremity: COMMON NORMALS: no clubbing, cyanosis or edema and no pedal edema Neuro: COMMON NORMALS: patient oriented x3 Data : 07/02/20 09:20 07/02/20 03:39 A&P Assessment and plan (1) Hematochezia: Status: Acute (2) Acute blood loss anemia: Status: Acute (3) Normocytic anemia: Status: Acute (4) SANTIAGO (acute kidney injury): Status: Acute Additional A&P Information Acute normocytic anemia/lower GI bleed Hematochezia Not on any anticoagulant agent, no history of peptic ulcer disease, previous colonoscopy revealed diverticulosis and benign polyps No diverticulitis noted Patient is not septic, hemodynamically stable Hold off on transfusion until his hemoglobin drops below 8, keep PRBC on standby CLD advance diet as tolerated., serial H&H His bleeding is most likely diverticular Protonix 40 IV twice daily D5 half-normal saline fluid resuscitation No acute indication for surgical consult, kindly reevaluate in the morning Acute kidney injury Patient has history of BPH, takes tamsulosin at home, monitor urine output, bladder scan as needed, Normal potassium, rule out post renal etiology for increasing creatinine, will obtain renal ultrasound, patient is not taking any nephrotoxic agents at home, there is no significant drop in hemoglobin to cause prerenal SANTIAGO DVT prophylaxis SCDs N.p.o. DNR/DNI, goals of care discussed with the patient in the ER Attestations Medical Necessity Statement*: Patient needs to be in hospital for the management of LGIB Coding Level of Care Code Acute Mineral Technologist for Swetha Morton Diagnoses Hematochezia K92.1 Acute blood loss anemia D62 Normocytic anemia D64.9 SANTIAGO (acute kidney injury) N17.9
[2020-07-02] MEDS: ropinirole 2 mg Tablet 5 MG PO (12:30)
[2020-07-03] VITALS (12 sets, daily range): BP systolic 104–136; BP diastolic 38–77; PULSE 65–92; RESP 17–18; TEMP 36.3–36.6; O2SAT 95–100
[2020-07-03] MEDS: dextrose 5%-sod chloride 0.45% 1,000 ML 75 ML IV (05:06)
[2020-07-03 05:29] LABS: Basophils # 0.1 10^3/uL (0.0-0.1); Basophils % 0.8 %; Eosinophils # 0.2 10^3/uL (0.0-0.8); Hemoglobin 7.4 g/dL (11.7-16.6); Lymphocytes # 0.9 10^3/uL (0.8-4.8); Lymphocytes % 12.6 %; Mean Corpuscular HGB Conc 32.2 g/dL (30.0-36.0); Mean Corpuscular Hemoglobin 28.7 pg (28.0-34.0); Mean Corpuscular Volume 89.1 fL (80-94); Mean Platelet Volume 9.9 fL (7.4-10.4); Monocytes # 0.5 10^3/uL (0.2-0.9); Monocytes % 6.5 %; Neutrophils # 5.51 10^3/uL (1.8-7.7); Neutrophils % 76.3 %; Nucleated Red Blood Cells % 0 %; Platelet Count 169 10^3/cmm (130-400); Red Blood Count 2.58 10^6/uL (4.1-5.3); Red Cell Distribution Width 14.6 % (12.1-15.1); White Blood Count 7.2 10^3/uL (4.0-10.0)
[2020-07-03 06:11] LABS: Alanine Aminotransferase 10 U/L (0-41); Albumin Level 3.2 g/dL (3.5-5.2); Alkaline Phosphatase 52 IU/L (40-130); Anion Gap 10.6 (5-19); Aspartate Amino Transferase 11 U/L (0-40); Blood Urea Nitrogen 18 mg/dL (8-23); Calcium 8.3 mg/dL (8.5-10.5); Carbon Dioxide 24 mmol/L (22-29); Chloride 108 mmol/L (98-107); Globulin 1.5 g/dL (1.3-4.6); Glucose 125 mg/dL (65-115); Osmolality Calculated 291 mOsm/kg (285-295); Potassium 3.6 mmol/L (3.5-5.1); Sodium 139 mmol/L (136-145); Total Bilirubin 0.3 mg/dL (0.15-1.2); Total Protein 4.7 g/dL (6.6-8.7)
[2020-07-03] MEDS: ropinirole 2 mg Tablet 5 MG PO (08:20)
[2020-07-03] MEDS: pantoprazole 40 mg SDV IVP ×2 (08:20→18:01)
[2020-07-03] MEDS: levothyroxine 150 mcg Tablet 75 MCG PO (08:21)
[2020-07-03] MEDS: tamsulosin 0.4 mg Capsule PO ×2 (08:21→18:01)
[2020-07-03] MEDS: sodium chloride 0.9% (100 ml) 100 ML 75 ML (11:57)
--- NOTE | 2020-07-03 13:32 | PC.CHAP ---
Pastoral Care Encounter/Spiritual Assessment Type of Contact [] Declined cognos consultant visit [] Patient/Family/Request visit [] Outpatient visit [] Follow-up visit [] Physician referral [] Code/Alert [X] Routine visit [] Staff referral [] Actively dying [] Patient sleeping [] Family support [] [] Out of room [] Palliative care [] [] Receiving care in room [] Pre-surgical visit [] Trauma [] Long length of stay [] ICU visit [] Other: Relational/Emotional Strength [] Patient feels connected with others/family/visitors/staff [] Distress [] Loneliness/isolation [] Abandonment Spirituality of Patient [] Person of Vi [] Attends Temple of their Vi [] Believes in Prayer [] Reads Bible or Jain materials [] There are Spiritual issues to be addressed Security Screener Interventions [] Prayer [] Active listening [] Non-anxious presence [] Spiritual/emotional support [] Crisis/trauma care [] Spiritual counseling [] Bereavement support [] Provided bereavement packet [] Provided Bible/devotional materials [] Provided toy/stuffed animal, coloring book to patient or family member [] Provided Communion [] Anointing/[place] [] Salvation [] Completed spiritual assessment [] Other: Impact on Illness or Injury [] Angry [] Fearful [] Anxious [] Often cries [] Exhaustion [] Unable to work [] Unable to attend synagogue [] Unable to walk/stand [] Unable to read [] Unable to drive [] Unable to eat/drink [] Unable to sleep [] Unable to be with family [] Patient intubated [] Other: Summary Time spent with patient
[2020-07-03 17:06] LABS: Glucose Point of Care 133 mg/dL (70-110)
[2020-07-03 17:43] LABS: Basophils # 0.1 10^3/uL (0.0-0.1); Basophils % 0.6 %; Eosinophils # 0.1 10^3/uL (0.0-0.8); Eosinophils % 0.6 %; Hematocrit 30.3 % (42.0-52.0); Hemoglobin 9.7 g/dL (11.7-16.6); Lymphocytes # 1.7 10^3/uL (0.8-4.8); Lymphocytes % 10.8 %; Mean Corpuscular Hemoglobin 28.9 pg (28.0-34.0); Mean Corpuscular Volume 90.2 fL (80-94); Mean Platelet Volume 9.7 fL (7.4-10.4); Monocytes % 6.5 %; Neutrophils # 12.82 10^3/uL (1.8-7.7); Neutrophils % 80.6 %; Nucleated Red Blood Cells % 0 %; Platelet Count 228 10^3/cmm (130-400); Red Blood Count 3.36 10^6/uL (4.1-5.3); Red Cell Distribution Width 14.5 % (12.1-15.1); White Blood Count 15.9 10^3/uL (4.0-10.0)
--- NOTE | 2020-07-03 20:10 | P.DS_ITS ---
Discharge Providers Date of Admission: 07/02/20 00:27 Date of Discharge: July 03, 2020 Attending Provider at Admission: Cori Muñiz MD Attending Provider at Discharge: Michael Maravilla MD Primary Care Provider: Brendon Rhodes MD Diagnoses at Discharge Discharge Diagnosis (1) Hematochezia: Status: Resolved (2) Acute blood loss anemia: Status: Chronic (3) Normocytic anemia: Status: Chronic (4) SANTIAGO (acute kidney injury): Status: Chronic Reason for Visit Reason for Visit: passing blood Hospital Course Hospital Course 84 year old male with PMH of HTN, diverticulosis came in with chief complaint of bright bleed per rectum.On admission he denied constipation, diarrhea, abdominal pain nausea or vomiting. He complained of bleeding as bright bleed per rectum, he has not noticed any clots or dark-colored stools.Previous colonoscopies revealed polyps which were benign in nature and diverticulosis. He is not on any anticoagulant agent.He is on Aspirin for possible for carotid stenosis.During the hospital stay his Hb has dropped to 7.4 from 10.2 though he never complained of any fresh episode of BRBPR or dark stool.He was transfused 1 u PRBC and was discahrged home at Hb of 9.7.Patient wants to follow his PCP as well as as outpatient. Imaging Studies: CT Abdomen And Pelvis With Contrast: The wall of the distal colon is thickened but collapsed. This appearance may reflect lack of distention however mild colitis cannot be excluded. There is diverticulosis without diverticulitis. Physical Exam Const: COMMON NORMALS: patient oriented x3 HENMT: COMMON NORMALS: normocephalic and atraumatic HEAD & SCALP: normocephalic and atraumatic Eye: COMMON NORMALS: no scleral icterus GENERAL EYE: appearance normal, both eyes and all related structures Chest: COMMONS NORMALS: normal inspection of the chest CHEST: Yes Symmetrical chest wall rise Resp: COMMON NORMALS: normal respiratory effort and clear to auscultation bilaterally EFFORT & INSPECTION: Yes symmetric chest movement AUSCULTATION: clear to auscultation bilaterally Cardio: COMMON NORMALS: regular rate, regular rhythm, S1 normal heart sound present, S2 normal heart sound present, No gallops present (Cardio), No murmurs present (Cardio), No rub (Cardio) and Peripheral pulses 2+ throughout RATE: regular rate RHYTHM: regular rhythm HEART SOUNDS: S1 normal heart sound present and S2 normal heart sound present PERIPHERAL PULSES: Peripheral pulses 2+ throughout GI: COMMON NORMALS: Normal to inspection, nondistended, normoactive bowel sounds present, Soft to palpation, non-tender, No hepatosplenomegaly present and no masses AUSCULTATION: Yes normoactive bowel sounds PALPATION: Yes Soft to palpation and Yes No hepatosplenomegaly present RECTAL EXAM: Yes deferred Extremity: COMMON NORMALS: no clubbing, cyanosis or edema and no pedal edema Neuro: COMMON NORMALS: patient oriented x3 Discharge Data Data Completed and Pending: Completed Studies During Hospitalization Category Date Time Status CT abdomen pelvis w con* [id number] Urge nt Cat Scan 07/01/20 19:07 Completed Labs from last 24 hours 07/03/20 07/03/20 07/03/20 17:34 16:49 04:45 WBC 15.9 H RBC 3.36 L Hgb 9.7 L D Hct 30.3 L D MCV 90.2 MCH 28.9 MCHC 32.0 RDW 14.5 Plt Count 228 MPV 9.7 Neut % (Auto) 80.6 Lymph % (Auto) 10.8 [place] % (Auto) 6.5 Eos % (Auto) 0.6 Baso % (Auto) 0.6 Neut # (Auto) 12.82 H Lymph # (Auto) 1.7 [place] # (Auto) 1.0 H Eos # (Auto) 0.1 Baso # (Auto) 0.1 Nucleated RBC % (a uto) 0 Nucleated RBCs # 0.0 Sodium 139 Potassium 3.6 Chloride 108 H Carbon Dioxide 24 Anion Gap 10.6 BUN 18 Creatinine 1.4 H GFR Calculation Not Reportable Glucose 125 H POC Glucose 133 Calculated Osmolal ity 291 Calcium 8.3 L Total Bilirubin 0.3 AST 11 ALT 10 Alkaline Phosphata se 52 Total Protein 4.7 L Albumin 3.2 L Globulin 1.5 Blood Type Rho(D) Type Antibody Screen Crossmatch 07/03/20 07/02/20 04:45 09:20 WBC 7.2 RBC 2.58 L Hgb 7.4 L Hct 23.0 L MCV 89.1 MCH 28.7 MCHC 32.2 RDW 14.6 Plt Count 169 MPV 9.9 Neut % (Auto) 76.3 Lymph % (Auto) 12.6 [place] % (Auto) 6.5 Eos % (Auto) 3.0 Baso % (Auto) 0.8 Neut # (Auto) 5.51 Lymph # (Auto) 0.9 [place] # (Auto) 0.5 Eos # (Auto) 0.2 Baso # (Auto) 0.1 Nucleated RBC % (a uto) 0 Nucleated RBCs # 0.0 Sodium Potassium Chloride Carbon Dioxide Anion Gap BUN Creatinine GFR Calculation Glucose POC Glucose Calculated Osmolal ity Calcium Total Bilirubin AST ALT Alkaline Phosphata se Total Protein Albumin Globulin Blood Type O Positive Rho(D) Type Positive Antibody Screen Negative Crossmatch See Detail Vitals: Last Vital Signs Temp 97.6 F 07/03/20 18:56 Pulse 87 07/03/20 18:56 Resp 18 07/03/20 18:56 BP 117/68 07/03/20 18:56 Pulse Ox 99 07/03/20 18:56 Discharge Plan Discharge Patient Disposition: Home Condition: Stable Prescriptions: New Protonix 40 mg tablet,delayed release (DR/EC) 40 mg PO DAILY Qty: 30 RF: 0 Continued simvastatin 40 mg tablet 20 mg PO DAILY RF: 0 ropinirole 1 mg tablet 4 mg PO DAILY RF: 0 levothyroxine 75 mcg capsule 75 mcg PO DAILY RF: 0 triamterene-hydrochlorothiazid 37.5-25 mg tablet 1 tab PO DAILY RF: 0 Vitamin D3 1 cap PO DAILY RF: 0 tamsulosin 0.4 mg capsule 0.4 mg PO BID RF: 0 Held aspirin 81 mg tablet,delayed release (DR/EC) 81 mg PO DAILY RF: 0 Hold Instructions: PROCEDURE Discharge Orders: Discharge Order (Routine); Ordered 07/03/20 Ordered By: Michael Maravilla Referrals: Vance Lagunas MD [Physician] - 1 week (Please call Dr. Lagunas's office and set up an appointment to be seen within one week. [phone]) Discharge Diet: Low Salt Discharge Activity: Resume usual activity Patient Instructions: Anemia, Pantoprazole (By mouth), Acute Kidney Injury (DC) Discharge Attestations Time Spent in Discharge Care*: greater than 30 min Specific Discharge Activities: educating patient, educating and/or supporting family/caregiver, discussing with pcp/other providers, discussing with caser in/social workers/dc planners and evaluating patient/reviewing data Status at Discharge: Cognitive status at discharge: cognitively intact , Behavioral status at discharge: cooperative , Functional status at discharge: independent ambulation Overall status at discharge: patient is back to baseline Quality Metrics Clinical Quality Measures During this hospital stay, did patient experience: None Coding Level of Care Code Acute 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
== END 2020-07-03 18:57 | disposition home or self-care (01) ==
LOC: ER 21:22 → MEDSURG 07-02 00:44
PROVIDERS: Nurse Practitioner Family; Admitting Provider Internal Medicine; Emergency Provider Family Medicine; PCP Family Medicine; Visit Provider Internal Medicine
DX: K92.1 Melena (principal); D62 Acute posthemorrhagic anemia; D64.9 Anemia, unspecified; N17.9 Acute kidney failure, unspecified; Z79.82 Long term (current) use of aspirin; N40.1 Benign prostatic hyperplasia with lower urinary tract symptoms; N13.8 Other obstructive and reflux uropathy; Z87.891 Personal history of nicotine dependence
CPT/HCPCS: 12345; 36415; 36416; 36430; 74177; 80048; 80053; 81003; 82962; 83605; 83690; 83880; 85014; 85018; 85025; 85730; 86850; 86900; 86920; 96360; 96361; 96375; 99283; 99285; C9113; G0378; J7799; P9016; Q9967

== ENCOUNTER → 2020-07-09 16:19 | Outpatient (BNVA) | payer MEDICARE, SELFPAY | PROVIDERS: PCP Family Medicine; Visit Provider Internal Medicine | DX: Z20.828 Contact with and (suspected) exposure to other viral communicable diseases (principal); Z01.812 Encounter for preprocedural laboratory examination | CPT/HCPCS: 87635 ==

== ENCOUNTER 2020-07-15 08:19 | Day surgery (SDC) | payer MEDICARE, SELFPAY ==
[2020-07-10 10:13] VITALS: BMI 32.8
[2020-07-15 08:35] VITALS: BP 144/68; PULSE 94; RESP 18; TEMP 36.1; O2SAT 98
--- NOTE | 2020-07-15 08:45 | ANES.PREANE2 ---
Pre-Anesthetic Assessment Pre-Anesthetic Assessment: Height/Weight: Height 1.7 m Weight 95.254 kg Pulse Resp Pulse Ox 94 18 98 07/15/20 08:35 07/15/20 08:35 07/15/20 08:35 Preop Diagnosis: hematochezia Proposed Procedure: Operation Date: 07/15/20 09:30 Proposed Procedures p Colonoscopy 30744 k92.1(Not Applicable) - Vance Lagunas MD Familial anesthetic complications: denies Was Beta Wilma taken within 24 hours: N/A Last intake: Intake Last Liquid Date 07/14/20 Last Liquid Time 23:30 Last Solid Date 07/13/20 Last Solid Time 23: Last Intake: 00:00 Social: Social History: No alcohol and No tobacco Exam: Pre-Anes Outpt Exam: alert, oriented x 3 and clear to auscultation bilaterally Airway: Submandibular: WNL Cervical ROM: WNL MP: 1 Dentition: Partials (bottom partial is home) and Full (upper dentures ) Pulmonary: Pulmonary: None reported CV/HEM: CV/HEM: None reported : : None reported GI: GI: None reported Metabolic: Metabolic: DM (diet controlled diabetic ) and Thyroid Musc/skel: Musc/skel: OA/DJD Neuropsych: Neuropsych: None reported Anesthetic Plan: ASA status: 2 Anesthesia: Anesthesia Evaluation and MAC PFSH Anesthesia PFSH: Medical History (Updated 07/09/20 @ 14:30 by Vacne Lagunas MD) Abnormal prostate exam Acute blood loss anemia SANTIAGO (acute kidney injury) BPH w urinary obs/LUTS Elevated PSA Hematochezia History of nonmelanoma skin cancer Lower gastrointestinal hemorrhage Normocytic anemia Surgical History H/O partial resection of colon H/O transurethral resection of prostate H/O umbilical hernia repair H/O: vasectomy History of knee replacement BILATERAL Hx of tonsillectomy Family History Father , AT AGE 75 CHF (congestive heart failure) Mother , AT AGE 92-COMPLICATIONS FROM A FALL No problems noted. Social History Smoking and tobacco status: former smoker Alcohol intake: current Alcohol intake frequency: holidays/special occasions only Marital status: Current occupational status: retired History of recent travel: No Data Anesthesia Cardiac Studies: No Data to Display
[2020-07-15] MEDS: sodium chloride 0.9% 1,000 ML 30 ML IV (08:51)
[2020-07-15 08:55] LABS: Glucose Point of Care 117 mg/dL (70-110)
--- NOTE | 2020-07-15 09:08 | W.PM.OPSUD ---
Surgery/Procedure H&P Update DATE OF PROCEDURE: July 15, 2020 DATE H&P PERFORMED: 07/09/20 PREOP DIAGNOSIS: hematochezia PLANNED PROCEDURE: Operation Date: 07/15/20 09:30 Proposed Procedures p Colonoscopy [id number] k92.1(Not Applicable) - Vance Lagunas MD
--- NOTE | 2020-07-15 10:05 | ANE.PACU2 ---
Inpatient post-anesthesia follow up: Airway intact: Yes Vital signs: Temperature 97 F Pulse Rate 94 Respiratory Rate 18 Blood Pressure 144/68 Pulse Oximetry 98 Oxygen Delivery Me thod Room Air Oxygen Flow Rate Fraction of Inspir ed Oxygen Hydration adequate: Yes Nausea and vomiting: No Pain level: 1 Pain level: 0/10 Mental status: Baseline
[2020-07-15 10:08] VITALS: BP 135/65; PULSE 66; RESP 18; TEMP 37.1; O2SAT 98
[2020-07-15 10:24] VITALS: BP 153/59; PULSE 80; RESP 20; TEMP 36.8; O2SAT 97
--- NOTE | 2020-07-15 11:34 | PM.PACU ---
PACU note PACU note: VSS Post-Anesthesia Exam: awake Disposition: discharged
== END 2020-07-15 10:41 | disposition home or self-care (01) ==
PROVIDERS: PCP Family Medicine; Visit Provider Internal Medicine
PROC: 0DJD8ZZ Inspection of Lower Intestinal Tract, Via Natural or Artificial Opening Endoscopic (ICD-10-PCS; CPT 45378; principal; 2020-07-15 09:30)
DX: K92.1 Melena (principal); K63.89 Other specified diseases of intestine; K57.30 Diverticulosis of large intestine without perforation or abscess without bleeding; E11.9 Type 2 diabetes mellitus without complications; M19.90 Unspecified osteoarthritis, unspecified site; Z86.2 Personal history of diseases of the blood and blood-forming organs and certain disorders involving the immune mechanism; N40.1 Benign prostatic hyperplasia with lower urinary tract symptoms; Z85.828 Personal history of other malignant neoplasm of skin; Z90.79 Acquired absence of other genital organ(s); Z96.653 Presence of artificial knee joint, bilateral; Z90.89 Acquired absence of other organs; Z82.49 Family history of ischemic heart disease and other diseases of the circulatory system; Z87.891 Personal history of nicotine dependence; Z79.82 Long term (current) use of aspirin
CPT/HCPCS: 12345; 36416; 45378; 82962; J2704; J7030

== ENCOUNTER → 2020-08-06 16:11 | Outpatient (BNVA) | payer MEDICARE, SELFPAY | PROVIDERS: PCP Family Medicine; Visit Provider Urology | DX: N13.8 Other obstructive and reflux uropathy (principal); N40.1 Benign prostatic hyperplasia with lower urinary tract symptoms; D07.4 Carcinoma in situ of penis | CPT/HCPCS: 81003 ==

== ENCOUNTER 2020-11-18 12:14 | Outpatient (CLI) | payer MEDICARE, SELFPAY ==
--- NOTE | 2020-11-18 12:25 | XRR_ITS ---
PROCEDURE INFORMATION: Exam: XR Cervical Spine Exam date and time: 11/18/2020 12:43 PM Age: 85 years old Clinical indication: Neck pain; Prior surgery; Surgery type: Carotid artery TECHNIQUE: Imaging protocol: XR of the cervical spine. Views: 2 or 3 views. COMPARISON: CTA Neck [id number] 03/20/2019 9:09 AM FINDINGS: Bones/joints: No acute fracture. Normal alignment. There is straightening of the cervical spine. Degenerative change is identified in the spine. There is disc space narrowing and osteophyte formation especially at C5/6 and C6/7. Soft tissues: Unremarkable. XR/XR cervical spine 3V* [id number] IMPRESSION: No acute findings. If there is desire for further evaluation, a MRI could be performed.
== END 2020-11-18 12:15 | disposition home or self-care (01) ==
LOC: RAD 12:21
PROVIDERS: PCP Family Medicine; Visit Provider Family Medicine
DX: M54.2 Cervicalgia (principal)
CPT/HCPCS: 72040

== ENCOUNTER 2020-11-23 18:13 | Emergency (ER) | payer MEDICARE, SELFPAY ==
[2020-11-23 18:30] VITALS: BP 139/85; PULSE 75; RESP 18; TEMP 37.2; O2SAT 95; BMI 29.7
--- NOTE | 2020-11-23 19:51 | W.ED.GENADLT ---
HPI - General Adult General: Chief complaint: General Medical Stated complaint: possible stroke Time Seen by Provider: 11/23/20 19:50 Source: patient Mode of arrival: ambulatory Limitations: no limitations History of Present Illness: HPI narrative: Patient presents with a 7-day history of difficulty swallowing and some weakness in the lower extremities. Patient does have some right eyelid drooping which he reports has been worsening for the last year. Patient denies any fever or pain. Patient does report some increased difficulty with swallowing and increasing nasal drainage at night. Patient appears well. Patient appears no acute distress. Onset (ago): day(s) Review of Systems General: Reports: 10 or more systems reviewed and unremarkable except in HPI and below GI: Reports: dysphagia Musc: Reports: other (Weakness) PFSH ED PFSH: Medical History Abnormal prostate exam Acute blood loss anemia SANTIAGO (acute kidney injury) BPH w urinary obs/LUTS Elevated PSA Hematochezia History of nonmelanoma skin cancer Lower gastrointestinal hemorrhage Normocytic anemia Surgical History H/O partial resection of colon H/O transurethral resection of prostate H/O umbilical hernia repair H/O: vasectomy History of knee replacement BILATERAL Hx of tonsillectomy Family History Father , AT AGE 75 CHF (congestive heart failure) Mother , AT AGE 92-COMPLICATIONS FROM A FALL No problems noted. Social History Smoking and tobacco status: former smoker Alcohol intake: current Alcohol intake frequency: holidays/special occasions only Marital status: Current occupational status: retired History of recent travel: No Physical Exam Const: COMMON NORMALS: no acute distress, patient oriented x3 and alert GENERAL APPEARANCE: cooperative ORIENTATION/CONSCIOUSNESS: Yes oriented to person and Yes oriented to place HENMT: COMMON NORMALS: normocephalic and Normal external nose present HEAD & SCALP: normal to inspection and normocephalic NOSE: Normal external nose present MOUTH: Normal oral and palatal mucosa present THROAT: posterior oropharynx normal Eye: GENERAL EYE: appearance normal, both eyes and all related structures Neck/C-Spine: COMMON NORMALS: no meningeal signs OTHER: Decreased range of motion is noted to the neck in all directions. Lymph: LYMPHATIC: no lymphadenopathy noted Chest: COMMONS NORMALS: normal inspection of the chest Resp: COMMON NORMALS: normal respiratory effort EFFORT & INSPECTION: Yes able to speak in complete sentences Cardio: COMMON NORMALS: regular rate and regular rhythm RATE: regular rate RHYTHM: regular rhythm GI: COMMON NORMALS: non-tender : COMMON NORMALS: Yes no CVA tenderness BLADDER/KIDNEY EXAM: Yes no CVA tenderness Back/Pelvis: COMMON NORMALS: no CVA tenderness and thoracic and lumbar spine normal to inspection Extremity: COMMON NORMALS: normal to inspection Neuro: COMMON NORMALS: patient oriented x3 and moves all extremities SENSORIUM/ORIENTATION: Yes alert, Yes oriented to person and Yes oriented to place MENINGEAL SIGNS: Yes no meningeal signs SPEECH: speech normal MOTOR EXAM: 5/5 motor strength present throughout, Pronator motor function not present and no tremor noted Psych: COMMON NORMALS: mental status grossly normal and cooperative Skin: COMMON NORMALS: no rashes or lesions noted GENERAL SKIN EXAM: no rashes or lesions noted Course Vital Signs: Vital signs: Vital Signs Temperature 99.0 F 11/23/20 18:30 Pulse Rate 75 11/23/20 21:10 Respiratory Rate 16 11/23/20 21:10 Blood Pressure 129/70 11/23/20 21:10 Pulse Oximetry 93 11/23/20 21:10 MDM - General Adult MDM Narrative: Medical decision making narrative: Patient comes in today with complaints of some increased weakness over the last 7 to 10 days. Patient been seen by Dr. Rhodes and has been treated by him with recommendations for MRI scan. Patient was brought in by [facility] for concerns of his new weakness and difficulty swallowing. Patient states that this is not new as he is already seen Dr. Rhodes for it. Patient denies any pain or difficulty otherwise. Respirations are even lungs are clear to auscultation. Abdomen soft nontender. Skin is warm and dry. Vital signs are normal. Patient has some ptosis to the right eyelid which is chronic for him. Neurologic examination is unremarkable. Differential diagnosis includes not limited to status post stroke, upper respiratory infection, electrolyte imbalance. Laboratory values were unremarkable. CT of the head showed no acute changes. There was noted in the CT of pituitary tumor although it was not noted that this was new for patient. I reviewed the exam with patient recommendations for treatment and follow-up. I do not see no concern or need at this time for a stat MRI. Recommended patient continue with his plan and follow-up or return to the ER for worsening symptoms. Patient reported understanding agreed to plan. Lab Data: Labs: Lab Results 11/23/20 11/23/20 11/23/20 Range/Units 20:30 20:30 20:30 WBC 11.9 H (4.0-10.0) 10^3/ uL RBC 5.13 (4.1-5.3) 10^6/u L Hgb 13.8 (11.7-16.6) g/dL Hct 43.3 (42.0-52.0) % MCV 84.4 (80-94) fL MCH 26.9 L (28.0-34.0) pg MCHC 31.9 (30.0-36.0) g/dL RDW 15.4 H (12.1-15.1) % Plt Count 234 (130-400) 10^3/c mm MPV 9.7 (7.4-10.4) fL Neut % (Auto) 93.1 % Lymph % (Auto) 3.9 % Pennington % (Auto) 2.3 % Eos % (Auto) 0.0 % Baso % (Auto) 0.2 % Neut # (Auto) 11.12 H (1.8-7.7) 10^3/u L Lymph # (Auto) 0.5 L (0.8-4.8) 10^3/u L Pennington # (Auto) 0.3 (0.2-0.9) 10^3/u L Eos # (Auto) 0.0 (0.0-0.8) 10^3/u L Baso # (Auto) 0.0 (0.0-0.1) 10^3/u L Nucleated RBC % (a uto) 0 % Nucleated RBCs # 0.0 /100WBC PT 13.70 (12.1-14.9) SECO NDS INR 1.02 (0.8-1.2) APTT 30.2 (23.9-36.7) SECO NDS Sodium 136 (136-145) mmol/L Potassium 4.1 (3.5-5.1) mmol/L Chloride 100 (98-107) mmol/L Carbon Dioxide 28 (22-29) mmol/L Anion Gap 12.1 (5-19) BUN 22 (8-23) mg/dL Creatinine 1.1 (0.7-1.2) mg/dL GFR Calculation Not Reportable Glucose 119 H (65-115) mg/dL Calculated Osmolal ity 286 (285-295) mOsm/k g Calcium 9.0 (8.5-10.5) mg/dL Total Bilirubin 0.5 (0.15-1.2) mg/dL AST 14 (0-40) U/L ALT 16 (0-41) U/L Alkaline Phosphata se 73 (40-130) IU/L Total Protein 6.9 (6.6-8.7) g/dL Albumin 4.2 (3.5-5.2) g/dL Globulin 2.7 (1.3-4.6) g/dL EKG Data^: EKG 1: Attestation: I personally reviewed and interpreted this EKG as follows: (Patient has sinus rhythm with a first-degree AV block, regular at 62 bpm. Left axis deviation is present. There is a IVC conduction delay and some left ventricular hypertrophy. No prior exam is available at this time for comparison.) Computer generated interpretation: Head CT 11/23/20 20:09 IMPRESSION: 1. Moderate involutional changes, no acute intracranial abnormality. 2. 2.3 cm pituitary mass. Radiation Dose CTDIVOL = (mGy): DLP = 1004.74 (mGy-cm) Discharge Plan Discharge Patient Disposition: Home Clinical Impression: Weakness Condition: Stable Prescriptions: No Action simvastatin 40 mg tablet 20 mg PO DAILY RF: 0 aspirin 81 mg tablet,delayed release (DR/EC) 81 mg PO DAILY RF: 0 Hold Instructions: Resume on 07/10/20. ropinirole 1 mg tablet 4 mg PO DAILY RF: 0 levothyroxine 75 mcg capsule 75 mcg PO DAILY RF: 0 triamterene-hydrochlorothiazid 37.5-25 mg tablet 1 tab PO DAILY RF: 0 ferrous sulfate 325 mg (65 mg iron) tablet 325 mg PO DAILY RF: 0 Vitamin D3 1 cap PO DAILY RF: 0 tamsulosin 0.4 mg capsule 0.4 mg PO BID RF: 0 pantoprazole [Protonix] 40 mg tablet,delayed release (DR/EC) 40 mg PO DAILY Qty: 30 RF: 0 Discharge Orders: Discharge ED (Routine); Ordered 11/23/20 Ordered By: Danny Hope Referrals: Brendon Rhodes MD [Primary Care Provider] - Discharge Diet: Usual diet Discharge Activity: Increase activity as tolerated Patient Instructions: Opioid Safety Activity Restrictions/Additional Instructions: Healthy diet. Activity as tolerated. Use a cane or walker to assist with mobility. Follow-up with primary care on Wednesday. Return to the emergency department for worsening symptoms. Continue with recommended plan of MRI at the scheduled appointment. Coding Level of Care Code ED Leg Breaker for Chg Fwd Exam Comprehensive
[2020-11-23 19:54] VITALS: BP 122/63; PULSE 74; RESP 16; O2SAT 95
--- NOTE | 2020-11-23 20:07 | ECG_ITS ---
[facility] Test Date: 2020-11-23 Pat Name: Watson Webber Department: Room: Gender: Male [place] Man: : 1935 Requested By: Danny Owen Order Number: [id number] Adri MD: Prabhakar Goyal M.D. Measurements Intervals [place] Rate: 62 P: -11 OK: 274 QRS: -36 QRSD: 137 T: 84 QT: 429 QTc: 437 Interpretive Statements SINUS RHYTHM WITH FIRST DEGREE AV BLOCK LEFT AXIS DEVIATION [QRS AXIS < -30] INTRAVENTRICULAR CONDUCTION DELAY [130+ ms QRS DURATION] LEFT VENTRICULAR HYPERTROPHY AND ST-T CHANGE [VOLTAGE CRITERIA PLUS ST/T ABNORMALITY] ANTEROSEPTAL MYOCARDIAL INFARCTION , OF INDETERMINATE AGE [40+ ms Q WAVE IN V1-V4] Compared to ECG 08/16/2018 04:07:21 Left ventricular hypertrophy now present ST (T wave) deviation now present T-wave abnormality no longer present Myocardial infarct finding still present Electronically Signed On 11-24-2020 15:33:17 CDT by Prabhakar Goyal M.D. [id number]
--- NOTE | 2020-11-23 20:09 | CTR_ITS ---
PROCEDURE INFORMATION: Exam: CT Head Without Contrast Exam date and time: 11/23/2020 8:33 PM Age: 85 years old Clinical indication: Weakness, facial; Patient HX: R facial droop and difficulty swallowing x 1 week; Additional info: Facial drooping TECHNIQUE: Imaging protocol: Computed tomography of the head without contrast. Radiation optimization: All CT scans at this facility use at least one of these dose optimization techniques: automated exposure control; mA and/or kV adjustment per patient size (includes targeted exams where dose is matched to clinical indication); or iterative reconstruction. COMPARISON: No relevant prior studies available. RADIATION DOSE METRICS: Total DLP (mGy-cm): 1004.74 FINDINGS: Brain: Diffuse moderate cerebral age related volume loss. Moderate patchy low attenuation in the white matter compatible with moderate chronic small vessel ischemic disease. No midline shift, mass, fluid collection, or evidence of hemorrhage. Cerebral ventricles: Ventricular enlargement proportional to volume loss. Bones/joints: Unremarkable. No acute fracture. Paranasal sinuses: Visualized sinuses are unremarkable. No fluid levels. Mastoid air cells: Visualized mastoid air cells are well aerated. Soft tissues: Unremarkable. Other findings: 2.[address]/CT head wo con* [id number] IMPRESSION: 1. Moderate involutional changes, no acute intracranial abnormality. 2. 2.3 cm pituitary mass. Radiation Dose CTDIVOL = (mGy): DLP = 1004.74 (mGy-cm)
[2020-11-23 20:37] LABS: Basophils % 0.2 %; Hematocrit 43.3 % (42.0-52.0); Hemoglobin 13.8 g/dL (11.7-16.6); Lymphocytes # 0.5 10^3/uL (0.8-4.8); Lymphocytes % 3.9 %; Mean Corpuscular HGB Conc 31.9 g/dL (30.0-36.0); Mean Corpuscular Hemoglobin 26.9 pg (28.0-34.0); Mean Corpuscular Volume 84.4 fL (80-94); Mean Platelet Volume 9.7 fL (7.4-10.4); Monocytes # 0.3 10^3/uL (0.2-0.9); Monocytes % 2.3 %; Neutrophils # 11.12 10^3/uL (1.8-7.7); Neutrophils % 93.1 %; Nucleated Red Blood Cells % 0 %; Platelet Count 234 10^3/cmm (130-400); Red Blood Count 5.13 10^6/uL (4.1-5.3); Red Cell Distribution Width 15.4 % (12.1-15.1); White Blood Count 11.9 10^3/uL (4.0-10.0)
[2020-11-23 20:50] LABS: INR 1.02 (0.8-1.2); Partial Thromboplastin Time 30.2 SECONDS (23.9-36.7)
[2020-11-23 20:54] LABS: Alanine Aminotransferase 16 U/L (0-41); Albumin Level 4.2 g/dL (3.5-5.2); Alkaline Phosphatase 73 IU/L (40-130); Anion Gap 12.1 (5-19); Aspartate Amino Transferase 14 U/L (0-40); Blood Urea Nitrogen 22 mg/dL (8-23); Carbon Dioxide 28 mmol/L (22-29); Chloride 100 mmol/L (98-107); Creatinine Clr Calc Pharmacy 51.4814; Globulin 2.7 g/dL (1.3-4.6); Glucose 119 mg/dL (65-115); Osmolality Calculated 286 mOsm/kg (285-295); Potassium 4.1 mmol/L (3.5-5.1); Sodium 136 mmol/L (136-145); Total Bilirubin 0.5 mg/dL (0.15-1.2); Total Protein 6.9 g/dL (6.6-8.7)
[2020-11-23 21:10] VITALS: BP 129/70; PULSE 75; RESP 16; O2SAT 93
== END 2020-11-23 21:47 | disposition home or self-care (01) ==
PROVIDERS: Emergency Provider Nurse Practitioner Family; PCP Family Medicine
DX: R53.1 Weakness (principal); Z79.82 Long term (current) use of aspirin; Z87.891 Personal history of nicotine dependence
CPT/HCPCS: 70450; 80053; 85025; 85610; 85730; 93005; 99283

== ENCOUNTER 2020-11-26 12:35 | Outpatient (CLI) | payer MEDICARE, SELFPAY ==
--- NOTE | 2020-11-26 | MR_ITS ---
WS: [id number] MRI BRAIN WITH AND WITHOUT CONTRAST HISTORY: CVA COMPARISON: 11/10/[address] head 11/23/2020 TECHNIQUE: Multiplanar imaging performed through the brain with MultiHance 20 ml's IV. No acute infarcts are seen. Martin-white matter differentiation is well preserved. No diffusion abnorma lity. Numerous T2 and FLAIR signal hyperintensities are both patchy and confluent throughout the whit e matter. Moderate progression of chronic microvascular ischemic changes since 2011. No hemorrhage. N o large territory infarct. Mild atrophy. Ventricles and extra-axial spaces are prominent due to central and peripheral atrophy. There is a large lobulated mass centered in the sella turcica. This mass has been described since 201 2 consistent with pituitary macroadenoma. Mass measures 13 x 15 x 18 mm. There is mild patchy enhance ment throughout the mass. There is mass effect upon the LEFT carotid artery and deviation of the pitu itary gland to the RIGHT without elevation of the optic chiasm. Mass is very slightly increased in si ze since 2011. Visualized posterior fossa and brainstem are also normal. Postcontrast images are negative for masses or vascular malformations. Dural venous sinuses are normal. Paranasal sinuses: Well aerated with no significant disease. Mastoid air cells: Normal. Calvarium and scalp: Normal. MR/MR head wo/w con [id number] IMPRESSION: 1. No acute infarct or subacute infarct. 2. No intracranial mass. 3. Moderate progression of advanced chronic microvascular ischemic disease. 4. Very slight increase in size of the known pituitary macroadenoma since 2011 .
[2020-11-26] MEDS: gadobenate dimeglumine 20 mL vial IV (13:46)
== END 2020-11-26 12:36 | disposition home or self-care (01) ==
LOC: RADSHAW 12:40
PROVIDERS: PCP Family Medicine; Visit Provider Family Medicine
DX: I63.9 Cerebral infarction, unspecified (principal); I67.82 Cerebral ischemia; D35.2 Benign neoplasm of pituitary gland
CPT/HCPCS: 70553; A9577

== ENCOUNTER → 2020-12-04 10:29 | Outpatient (BNVA) | payer MEDICARE, SELFPAY | PROVIDERS: PCP Family Medicine; Visit Provider Urology | DX: N40.1 Benign prostatic hyperplasia with lower urinary tract symptoms (principal); N13.8 Other obstructive and reflux uropathy; R39.89 Other symptoms and signs involving the genitourinary system; Z80.42 Family history of malignant neoplasm of prostate; D07.4 Carcinoma in situ of penis | CPT/HCPCS: 81003; G0103 ==

== ENCOUNTER 2020-12-06 06:56 | Outpatient (CLI) | payer MEDICARE, SELFPAY ==
--- NOTE | 2020-12-06 10:15 | MR_ITS ---
WS: [id number] MRI CERVICAL SPINE NONCONTRAST TECHNIQUE: Sagittal T1, T2 and STIR imaging. Axial T2, gradient, and fiesta imaging. CLINICAL INFORMATION: CERVICAL DISC DISORDER;NECK PAIN COMPARISON: None. FINDINGS: Exam is somewhat limited due to lower cervical and thoracic kyphosis. Motion artifact degrades some i mages. Cord signal appears normal. Disc bulging worse at C3-C5. Bony fusion C6-7. C2-C3: Mild bilateral foraminal narrowing. Spinal canal is patent. C3-C4: Disc osteophyte complex with endplate ridging. Mild central canal stenosis. Mild bilateral bon y foraminal narrowing. Mild facet arthropathy. C4-C5: Disc osteophyte complexe small central protrusion. Moderate central canal stenosis. Moderate l eft and mild right bony foraminal narrowing. Mild facet arthropathy. C5-C6: Disc osteophyte complex with endplate ridging. Small central protrusion. Mild central canal st enosis. Moderate right and mild left foraminal narrowing. Mild/moderate facet arthropathy. C6-C7: Interbody bony fusion. Mild bilateral bony foraminal narrowing. Mild central canal stenosis. C7-T1: Mild left and no significant right foraminal narrowing. Spinal canal is patent. Right thyroid nodule measuring 8 mm. MR/MR cervical spin wo con* [id number] IMPRESSION: 1. Exam somewhat limited due to thoracic kyphosis and motion artifact. 2. 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 Mild to moderate central canal stenosis C3-C4 C4-C5 and C5-C6 worse at C4-5 with central disc osteophyte protrusion and moderate central canal stenosis. S light indentation of the cervical cord. 4. Multilevel mild to moderate bony foraminal narrowing worse at bilateral C4- 5, bilateral C5-C6, and bilateral C6-7. 5. 8 mm right thyroid nodule.
== END 2020-12-06 06:57 | disposition home or self-care (01) ==
PROVIDERS: PCP Family Medicine; Visit Provider Family Medicine
DX: M50.90 Cervical disc disorder, unspecified, unspecified cervical region (principal); E04.1 Nontoxic single thyroid nodule; M48.02 Spinal stenosis, cervical region; D35.2 Benign neoplasm of pituitary gland; M40.204 Unspecified kyphosis, thoracic region
CPT/HCPCS: 72141

== ENCOUNTER 2020-12-08 16:31 | Emergency (ER) | payer MEDICARE, SELFPAY ==
[2020-12-08 16:36] VITALS: BP 158/77; PULSE 101; RESP 18; TEMP 36.6; O2SAT 98; BMI 29.7
[2020-12-08 18:35] VITALS: RESP 15
--- NOTE | 2020-12-08 18:43 | XR_ITS ---
WS: [id number] Exam: [place] [id number] Date/Time of Exam: 12/08/2020 6:50 PM Reason For Exam: fall No fracture or dislocation. Normal soft tissues. Degenerative changes at the shoulder and elbow. XR/[place] [id number] IMPRESSION: 1. Intact right humerus. No fracture noted.
--- NOTE | 2020-12-08 18:43 | XR_ITS ---
WS: [id number] Exam: XR elbow RT min 3V* [id number] Date/Time of Exam: 12/08/2020 6:50 PM Reason For Exam: fall No acute fracture or dislocation. No joint effusion. Mild degenerative change noted. XR/XR elbow RT min 3V* [id number] IMPRESSION: 1. Degenerative changes. No fracture or joint effusion seen.
--- NOTE | 2020-12-08 18:44 | W.ED.EXTPRO ---
HPI - Extremity Problem General: Chief complaint: Extremity Injury, Upper Stated complaint: fall, r arm injury/pain Time Seen by Provider: 12/08/20 18:39 History of Present Illness: HPI Narrative: Patient fell earlier as of noon getting out of his truck has a large skin tear to his right arm Complaint: extremity pain (Skin hurts on the right side denies any other injury) Onset (ago): hour(s) Pain Consistency: constant Location: right and upper extremity Severity scale (1-10): 2 Quality: sharp Radiation: none Associated symptoms: Reports no associated symptoms; Deny chest pain, fever(s) or rash Review of Systems Const: Denies: fever(s), chills or body aches Eyes: Denies: change in vision or blurry vision ENMT: Denies: throat pain or nasal congestion Card: Denies: chest pain or dyspnea on exertion Resp: Denies: dyspnea, productive cough or non-productive cough GI: Denies: abdominal pain, nausea or vomiting Musc: Denies: extremity pain Skin/Breast: Reports: other (Has large skin tear to her right upper arm and lower arm); Denies: rash Neuro: Denies: headache(s) Psych: Denies: anxiety or depression James/Lymph: Denies: easy bruising PFSH ED PFSH: Medical History (Updated 12/08/20 @ 19:24 by RUSSELL Quintanilla) Abnormal prostate exam Acute blood loss anemia SANTIAGO (acute kidney injury) BPH w urinary obs/LUTS Elevated PSA Family history of prostate cancer Hematochezia History of nonmelanoma skin cancer Lower gastrointestinal hemorrhage Normocytic anemia Surgical History H/O partial resection of colon H/O transurethral resection of prostate H/O umbilical hernia repair H/O: vasectomy History of knee replacement BILATERAL Hx of tonsillectomy Family History Father , AT AGE 75 CHF (congestive heart failure) Mother , AT AGE 92-COMPLICATIONS FROM A FALL No problems noted. Social History Smoking and tobacco status: former smoker Alcohol intake: current Alcohol intake frequency: holidays/special occasions only Marital status: Current occupational status: retired History of recent travel: No Physical Exam Const: COMMON NORMALS: no acute distress, average body habitus and patient oriented x3 HENMT: COMMON NORMALS: normocephalic HEAD & SCALP: normal to inspection and normocephalic FACE & SINUS: normal facial exam Eye: COMMON NORMALS: conjunctivae normal GENERAL EYE: appearance normal, both eyes and all related structures CONJUNCTIVA: Yes conjunctivae normal Neck/C-Spine: COMMON NORMALS: no JVD Chest: COMMONS NORMALS: normal inspection of the chest Resp: COMMON NORMALS: normal respiratory effort and clear to auscultation bilaterally AUSCULTATION: clear to auscultation bilaterally Cardio: COMMON NORMALS: no JVD, regular rate and regular rhythm RATE: regular rate RHYTHM: regular rhythm GI: COMMON NORMALS: Normal to inspection, nondistended, normoactive bowel sounds present Extremity: COMMON NORMALS: normal to inspection and full ROM Neuro: COMMON NORMALS: patient oriented x3 and CN's II-XII intact bilaterally Skin: NARRATIVE SKIN EXAM: Skin tear extending from mid humerus down to right forearm area no active bleeding. Course Vital Signs: Vital signs: Vital Signs Temperature 97.9 F 12/08/20 16:36 Pulse Rate 101 H 12/08/20 16:36 Respiratory Rate 15 12/08/20 18:35 Blood Pressure 158/77 12/08/20 16:36 Pulse Oximetry 98 12/08/20 16:36 MDM - Extremity (Nontraumatic) MDM Narrative: Medical decision making narrative: Patient presents with skin tear to the right arm. Denies any other injuries denies any pain. Denies any loss of consciousness. Patient has large skin tear from right humerus down to right forearm. Wound was very dirty. Irrigated and cleansed by nurse. Wet-to-dry dressing applied. Follow-up with the family medical provider tomorrow. Watch for signs symptoms of infection. Discharge Plan Discharge Patient Disposition: Home Clinical Impression: Skin tear Condition: Stable Prescriptions: New tramadol 50 mg tablet 50 mg PO TID PRN (Reason: pain) Qty: 7 RF: 0 cephalexin 500 mg capsule 500 mg PO Q8H 7 Days Qty: 21 RF: 0 No Action simvastatin 40 mg tablet 20 mg PO DAILY RF: 0 aspirin 81 mg tablet,delayed release (DR/EC) 81 mg PO DAILY RF: 0 Hold Instructions: Resume on 07/10/20. ropinirole 1 mg tablet 4 mg PO DAILY RF: 0 levothyroxine 75 mcg capsule 75 mcg PO DAILY RF: 0 triamterene-hydrochlorothiazid 37.5-25 mg tablet 1 tab PO DAILY RF: 0 ferrous sulfate 325 mg (65 mg iron) tablet 325 mg PO DAILY RF: 0 Vitamin D3 1 cap PO DAILY RF: 0 tamsulosin 0.4 mg capsule 0.4 mg PO BID RF: 0 Discharge Orders: Discharge ED (Routine); Ordered 12/08/20 Ordered By: Cheko Barlow Referrals: Brendon Rhodes MD [Primary Care Provider] - Discharge Diet: Usual diet Discharge Activity: Increase activity as tolerated Patient Instructions: Skin Tear (ED), Opioid Safety Activity Restrictions/Additional Instructions: Follow-up with medical provider as directed. Take medications as prescribed. Return to the ER or your medical provider if condition worsens. Please read and understand discharge instructions. If any questions ask please. Wet dressing of gauze applied to wound daily change dressing daily follow-up your primary care provider next day or 2 to assess for infection and healing the wound. Coding Level of Care Code ED As400 Administrator for Swetha Fwchel Exam Comprehensive
[2020-12-08] MEDS: cephALEXin 500 mg Capsule PO (19:27)
[2020-12-08] MEDS: TRAMadol 50 mg Tablet 25 MG PO (19:27)
[2020-12-08] MEDS: tetanus-dipt-pertussis 0.5 mL SDV IM (19:29)
--- NOTE | 2020-12-08 19:45 | PC.NURSE ---
Dressing applied to R arm after wound was irrigated and cleaned with NS. Petroleum gauze dressing applied to the wound site and wrapped with kerlix. Pt tolerated well.
[2020-12-08 20:04] VITALS: PULSE 97; O2SAT 95
== END 2020-12-08 20:03 | disposition home or self-care (01) ==
PROVIDERS: Emergency Provider Nurse Practitioner Family; PCP Family Medicine
DX: S41.111A Laceration without foreign body of right upper arm, initial encounter (principal); W19.XXXA Unspecified fall, initial encounter; Z79.82 Long term (current) use of aspirin; Z87.891 Personal history of nicotine dependence; Z23 Encounter for immunization
CPT/HCPCS: 73060; 73080; 90471; 90715; 99283

== ENCOUNTER 2020-12-20 11:00 | Outpatient (CLI) | payer MEDICARE, SELFPAY ==
--- NOTE | 2020-12-20 11:06 | FL_ITS ---
WS: [id number] MODIFIED BARIUM SWALLOW HISTORY: Other dysphagia FLUOROSCOPY TIME: 1.2 minutes. Modified barium swallow was performed by the speech pathologist. Fluoroscopy was provided with the pa tient in a lateral projection. Multiple food consistencies were provided. Only a few food consistencies were provided. Patient had significant aspiration with the thinner liquids. There was poor clearing of the barium mi xture from the oral pharynx placing the patient at high risk for additional aspirations. FL/FL barium swallow modifd [id number] IMPRESSION: 1. Episode of significant aspiration noted with the liquids. Patient remains a t high risk for additional aspirations as there is poor clearing from the oroph arynx of food products. Please see speech therapist report also for recommendations.
== END 2020-12-20 11:01 | disposition home or self-care (01) ==
LOC: RAD 11:02
PROVIDERS: PCP Family Medicine; Visit Provider Family Medicine
DX: R13.10 Dysphagia, unspecified (principal)
CPT/HCPCS: 74230; 92611

== ENCOUNTER → 2020-12-26 14:17 | Outpatient (BNVA) | payer MEDICARE, SELFPAY | PROVIDERS: PCP Family Medicine; Referring Provider Family Medicine; Visit Provider Orthopaedic Surgery | DX: M47.892 Other spondylosis, cervical region (principal); M41.82 Other forms of scoliosis, cervical region; M54.2 Cervicalgia | CPT/HCPCS: 72050 ==

== ENCOUNTER 2021-03-22 21:51 | Inpatient (IN) | payer MEDICARE, SELFPAY ==
[2021-03-22 21:52] VITALS: BP 76/40; PULSE 87; RESP 22; TEMP 36.2; O2SAT 94; BMI 23.5
[2021-03-22 21:56] VITALS: BP 76/40; PULSE 86
[2021-03-22 21:59] VITALS: BP 89/40; PULSE 89
--- NOTE | 2021-03-22 22:01 | XRR_ITS ---
PROCEDURE INFORMATION: Exam: XR Chest Exam date and time: 03/22/2021 10:01 PM Age: 85 years old Clinical indication: Device placement; Picc; Additional info: Fever TECHNIQUE: Imaging protocol: XR of the chest. Views: 1 view. COMPARISON: CR (CHEST, ) 03/22/2021 10:29 PM FINDINGS: Tubes, catheters and devices: There has been interval placement of a right internal jugular central venous line with its tip in the SVC right atrial junction. Lungs: Poorly defined probable pneumonia infiltrates at the medial right lung base partially obscuring the cardiac border. Pleural spaces: Unremarkable. No pleural effusion. No pneumothorax. Heart/Mediastinum: Unremarkable. No cardiomegaly. Bones/joints: Unremarkable. XR/XR chest 1V portable [id number] IMPRESSION: Right internal jugular central venous line in appropriate position. Possible right medial lung base pneumonia.
--- NOTE | 2021-03-22 22:01 | XRR_ITS ---
PROCEDURE INFORMATION: Exam: XR Chest Exam date and time: 03/22/2021 10:01 PM Age: 85 years old Clinical indication: Device placement; Picc; Additional info: Fever TECHNIQUE: Imaging protocol: XR of the chest. Views: 1 view. COMPARISON: CR Chest 1 [place] [id number] 08/16/2018 12:53 AM FINDINGS: Lungs: Unremarkable. No consolidation. Pleural spaces: Unremarkable. No pleural effusion. No pneumothorax. Heart/Mediastinum: Unremarkable. No cardiomegaly. Bones/joints: Unremarkable. XR/XR chest 1V portable [id number] IMPRESSION: No acute findings. No PICC line is seen on this exam.
--- NOTE | 2021-03-22 22:01 | CTR_ITS ---
PROCEDURE INFORMATION: Exam: CT Head Without Contrast Exam date and time: 03/22/2021 10:01 PM Age: 85 years old Clinical indication: Altered mental status/memory loss; Confusion or disorientation; Patient HX: AMS after fall TECHNIQUE: Imaging protocol: Computed tomography of the head without contrast. Radiation optimization: All CT scans at this facility use at least one of these dose optimization techniques: automated exposure control; mA and/or kV adjustment per patient size (includes targeted exams where dose is matched to clinical indication); or iterative reconstruction. COMPARISON: MR head wo/w con [id number] 11/26/2020 1:11 PM RADIATION DOSE METRICS: Total DLP (mGy-cm): 1022.74 FINDINGS: Brain: No intracranial hemorrhage. No mass effect or midline shift. Moderate diffuse cerebral atrophy. Low attenuation signal change within the periventricular white matter suggestive of chronic small vessel ischemic disease. Cerebral ventricles: No ventriculomegaly. Paranasal sinuses: Visualized sinuses are unremarkable. No fluid levels. Mastoid air cells: Visualized mastoid air cells are well aerated. Bones/joints: Unremarkable. No acute fracture. Soft tissues: Unremarkable. CT/CT head wo con* [id number] IMPRESSION: No acute intracranial abnormality. Radiation Dose CTDIVOL = (mGy): DLP = 1022.74 (mGy-cm)
--- NOTE | 2021-03-22 22:02 | ECG_ITS ---
[facility] ED Test Date: 2021-03-22 Pat Name: Watson Webber Department: Room: Gender: Male Survey Supervisor: : 1935 Requested By: Ashok Mukherjee Order Number: [id number] Adri MD: Davida Avalos M.D. Measurements Intervals [place] Rate: 83 P: -71 HI: 222 QRS: -32 QRSD: 119 T: 62 QT: 362 QTc: 426 Interpretive Statements SINUS RHYTHM WITH FIRST DEGREE AV BLOCK MARKED LEFT AXIS DEVIATION [QRS AXIS < -30] ANTEROSEPTAL MYOCARDIAL INFARCTION [40+ ms Q WAVE IN V1-V4], OF INDETERMINATE AGE Compared to ECG 11/23/2020 20:39:36 Intraventricular conduction delay no longer present Left ventricular hypertrophy no longer present ST (T wave) deviation no longer present Myocardial infarct finding still present Electronically Signed On 03-27-2021 9:38:54 CDT by Davida Avalos M.D. [id number]
--- NOTE | 2021-03-22 22:06 | ED_ITS ---
HPI - Weakness General: Chief complaint: ER Hold Stated complaint: GENERALIZED WEAKNESS Time Seen by Provider: 03/22/21 21:53 Source: patient and EMS Mode of arrival: EMS Limitations: altered mental status History of Present Illness: HPI Narrative: 85-year-old male who is here from home for confusion and weakness. Per EMS patient lives home alone has been dealing with a severe eye infection to bilateral eyes the last 3 to 4 days where he seen Dr. Weber is currently on erythromycin ointment. They were called out today for a fall. He states that they came out to get him up he was unable to stand on his own was confused to the date was hypotensive. Patient here is able answer some my questions but does not know the date and is confused. He is hypotensive here. No known fever. Associated symptoms: Reports confusion; Denies chest pain, chills, dysuria, easy bruising, fever(s), headache(s), nausea or vomiting Review of Systems Const: Reports: fatigue; Denies: fever(s), chills, body aches or change in appetite Eyes: Reports: change in vision, eye discomfort and eye discharge; Denies: blurry vision ENMT: Denies: throat pain or dental pain Card: Denies: chest pain Resp: Denies: dyspnea GI: Denies: abdominal pain, nausea, vomiting or diarrhea : Denies: dysuria Musc: Denies: neck pain or back pain Skin/Breast: Denies: rash Neuro: Reports: confusion; Denies: headache(s) Psych: Denies: depression James/Lymph: Denies: easy bruising All/Imm: Denies: urticaria PFSH ED PFSH: Medical History Abnormal prostate exam Acute blood loss anemia SANTIAGO (acute kidney injury) BPH w urinary obs/LUTS Elevated PSA Family history of prostate cancer Hematochezia History of nonmelanoma skin cancer Lower gastrointestinal hemorrhage Normocytic anemia Surgical History H/O partial resection of colon H/O transurethral resection of prostate H/O umbilical hernia repair H/O: vasectomy History of knee replacement BILATERAL Hx of tonsillectomy Family History Father , AT AGE 75 CHF (congestive heart failure) Mother , AT AGE 92-COMPLICATIONS FROM A FALL No problems noted. Social History Smoking and tobacco status: former smoker Alcohol intake: current Alcohol intake frequency: holidays/special occasions only Marital status: Current occupational status: retired History of recent travel: No Physical Exam Const: COMMON NORMALS: negative for patient oriented x3 GENERAL APPEARANCE: ill appearing and frail appearing ORIENTATION/CONSCIOUSNESS: Yes oriented to person, Yes oriented to place and Yes confused; not oriented to time HENMT: COMMON NORMALS: normocephalic and atraumatic HEAD & SCALP: no rmocephalic and atraumatic Eye: COMMON NORMALS: Equal, round and reactive pupils present and EOMs intact bilaterally PUPIL: Yes Equal, round and reactive pupils present OTHER: Severe erythema to bilateral eyes Neck/C-Spine: COMMON NORMALS: full ROM and supple Chest: COMMONS NORMALS: normal inspection of the chest and normal palpation of entire chest wall Resp: COMMON NORMALS: normal respiratory effort, No retractions, No use of accessory muscles and clear to auscultation bilaterally AUSCULTATION: clear to auscultation bilaterally Cardio: COMMON NORMALS: regular rate, regular rhythm and No murmurs present (Cardio) RATE: regular rate RHYTHM: regular rhythm GI: COMMON NORMALS: Normal to inspection, nondistended, normoactive bowel sounds present, Soft to palpation, non-tender and no masses PALPATION: Yes Soft to palpation Extremity: COMMON NORMALS: normal to inspection and full ROM Neuro: COMMON NORMALS: moves all extremities and no focal motor deficits; negative for patient oriented x3 SENSORIUM/ORIENTATION: Yes oriented to person, Yes oriented to place and No oriented to time Psych: COMMON NORMALS: Normal thought process present and cooperative APPEARANCE: Yes disheveled THOUGHT PROCESS: Normal thought process present Skin: COMMON NORMALS: no rashes or lesions noted and no wounds GENERAL SKIN EXAM: no rashes or lesions noted Procedures Central Line Placement Right IJ: Time Out Performed: Yes Patient Placed on Monitor/Pulse Ox: Yes MD Prep: mask, gown and gloves Central Line Prep: Chlorhexidine scrub Local Anesthetic: lidocaine 1% Amount of anesthesia used (mL): 3 Ultrasound Used for Placement: Yes Central Line Lumen Inserted: triple Post Procedure: sutured in place, good blood return, all ports aspirated, flushed, capped and sterile dressing applied Post Procedure X-Ray: tip of catheter in good position and no pneumothorax seen Patient Tolerated Procedure: well Complications: none Course Vital Signs: Vital signs: Vital Signs Temperature 97.1 F L 03/22/21 21:52 Pulse Rate 87 03/23/21 03:51 Respiratory Rate 16 03/23/21 03:41 Blood Pressure 103/46 03/23/21 03:51 Pulse Oximetry 96 03/23/21 03:51 MDM - Weakness MDM Narrative: Medical decision making narrative: Patient presents here with likely pneumonia with septic shock. Patient's blood pressure did not improve with IV fluids so central line was started and he was started on Levophed. His blood pressure is improved here on the Levophed. Patient also given IV antibiotics. Spoke to the hospitalist will plan on admitting to the ICU. Lab Data: Labs: Lab Results 03/22/21 03/22/21 03/22/21 Range/Units 22:03 22:03 22:03 WBC 23.0 H (4.0-10.0) 10^3/ uL RBC 4.97 (4.1-5.3) 10^6/u L Hgb 14.0 (11.7-16.6) g/dL Hct 43.0 (42.0-52.0) % MCV 86.5 (80-94) fL MCH 28.2 (28.0-34.0) pg MCHC 32.6 (30.0-36.0) g/dL RDW 14.6 (12.1-15.1) % Plt Count 328 (130-400) 10^3/c mm MPV 10.2 (7.4-10.4) fL Neut % (Auto) 96.2 % Lymph % (Auto) 0.4 % Garza % (Auto) 2.1 % Eos % (Auto) 0.2 % Baso % (Auto) 0.1 % Neut # (Auto) 22.14 H (1.8-7.7) 10^3/u L Lymph # (Auto) 0.1 L (0.8-4.8) 10^3/u L Garza # (Auto) 0.5 (0.2-0.9) 10^3/u L Eos # (Auto) 0.0 (0.0-0.8) 10^3/u L Baso # (Auto) 0.0 (0.0-0.1) 10^3/u L Nucleated RBC % (a uto) 0 % Nucleated RBCs # 0.0 /100WBC PT 15.30 H (12.1-14.9) SECO NDS INR 1.17 (0.8-1.2) Sodium 136 (136-145) mmol/L Potassium 3.4 L (3.5-5.1) mmol/L Chloride 98 (98-107) mmol/L Carbon Dioxide 17 L (22-29) mmol/L Anion Gap 24.4 H (5-19) BUN 47 H (8-23) mg/dL Creatinine 2.2 H (0.7-1.2) mg/dL GFR Calculation Not Reportable Glucose 104 (65-115) mg/dL Calculated Osmolal ity 295 (285-295) mOsm/k g Lactate (0.5-2.2) mmol/L Calcium 9.4 (8.5-10.5) mg/dL Total Bilirubin 0.8 (0.15-1.2) mg/dL AST 47 H (0-40) U/L ALT 24 (0-41) U/L Alkaline Phosphata se 85 (40-130) IU/L Total Protein 6.2 L (6.6-8.7) g/dL Albumin 3.0 L (3.5-5.2) g/dL Globulin 3.2 (1.3-4.6) g/dL TSH (0.27-4.20) uIU/ mL Urine Color (Yellow) Urine Appearance (CLEAR) Urine pH (5-7) Ur Specific Gravit y (1.005-1.030) Urine Protein (Negative) Urine Glucose (UA) (Normal) Urine Ketones (Negative) Urine Blood (Negative) Urine Nitrate (Negative) Urine Bilirubin (Negative) Urine Urobilinogen (Negative) mg/dL Ur Leukocyte Marlen ase (Negative) Urine RBC (0-2) /hpf Urine WBC (0-5) /hpf Ur Squamous Epith Cells (0-5) /hpf Amorphous Sediment /hpf Urine Bacteria (NONE) /hpf SARS-CoV-2 Ag (Rap id) (Negative) 03/22/21 03/22/21 03/22/21 Range/Units 22:03 22:03 22:53 WBC (4.0-10.0) 10^3/ uL RBC (4.1-5.3) 10^6/u L Hgb (11.7-16.6) g/dL Hct (42.0-52.0) % MCV (80-94) fL MCH (28.0-34.0) pg MCHC (30.0-36.0) g/dL RDW (12.1-15.1) % Plt Count (130-400) 10^3/c mm MPV (7.4-10.4) fL Neut % (Auto) % Lymph % (Auto) % Garza % (Auto) % Eos % (Auto) % Baso % (Auto) % Neut # (Auto) (1.8-7.7) 10^3/u L Lymph # (Auto) (0.8-4.8) 10^3/u L Garza # (Auto) (0.2-0.9) 10^3/u L Eos # (Auto) (0.0-0.8) 10^3/u L Baso # (Auto) (0.0-0.1) 10^3/u L Nucleated RBC % (a uto) % Nucleated RBCs # /100WBC PT (12.1-14.9) SECO NDS INR (0.8-1.2) Sodium (136-145) mmol/L Potassium (3.5-5.1) mmol/L Chloride (98-107) mmol/L Carbon Dioxide (22-29) mmol/L Anion Gap (5-19) BUN (8-23) mg/dL Creatinine (0.7-1.2) mg/dL GFR Calculation Glucose (65-115) mg/dL Calculated Osmolal ity (285-295) mOsm/k g Lactate 5.7 H* (0.5-2.2) mmol/L Calcium (8.5-10.5) mg/dL Total Bilirubin (0.15-1.2) mg/dL AST (0-40) U/L ALT (0-41) U/L Alkaline Phosphata se (40-130) IU/L Total Protein (6.6-8.7) g/dL Albumin (3.5-5.2) g/dL Globulin (1.3-4.6) g/dL TSH 6.80 H (0.27-4.20) uIU/ mL Urine Color Yellow (Yellow) Urine Appearance Clear (CLEAR) Urine pH 5 (5-7) Ur Specific Gravit y 1.010 (1.005-1.030) Urine Protein Trace (Negative) Urine Glucose (UA) Norm (Normal) Urine Ketones Negative (Negative) Urine Blood Neg (Negative) Urine Nitrate Negative (Negative) Urine Bilirubin Neg (Negative) Urine Urobilinogen Norm (Negative) mg/dL Ur Leukocyte Marlen ase Negative (Negative) Urine RBC 0-4 H (0-2) /hpf Urine WBC 0-4 H (0-5) /hpf Ur Squamous Epith Cells 0-4 H (0-5) /hpf Amorphous Sediment 2+ /hpf Urine Bacteria Trace (NONE) /hpf SARS-CoV-2 Ag (Rap id) (Negative) 03/23/21 03/23/21 Range/Units 01:13 01:23 WBC (4.0-10.0) 10^3/ uL RBC (4.1-5.3) 10^6/u L Hgb (11.7-16.6) g/dL Hct (42.0-52.0) % MCV (80-94) fL MCH (28.0-34.0) pg MCHC (30.0-36.0) g/dL RDW (12.1-15.1) % Plt Count (130-400) 10^3/c mm MPV (7.4-10.4) fL Neut % (Auto) % Lymph % (Auto) % Garza % (Auto) % Eos % (Auto) % Baso % (Auto) % Neut # (Auto) (1.8-7.7) 10^3/u L Lymph # (Auto) (0.8-4.8) 10^3/u L Garza # (Auto) (0.2-0.9) 10^3/u L Eos # (Auto) (0.0-0.8) 10^3/u L Baso # (Auto) (0.0-0.1) 10^3/u L Nucleated RBC % (a uto) % Nucleated RBCs # /100WBC PT (12.1-14.9) SECO NDS INR (0.8-1.2) Sodium (136-145) mmol/L Potassium (3.5-5.1) mmol/L Chloride (98-107) mmol/L Carbon Dioxide (22-29) mmol/L Anion Gap (5-19) BUN (8-23) mg/dL Creatinine (0.7-1.2) mg/dL GFR Calculation Glucose (65-115) mg/dL Calculated Osmolal ity (285-295) mOsm/k g Lactate 3.2 H (0.5-2.2) mmol/L Calcium (8.5-10.5) mg/dL Total Bilirubin (0.15-1.2) mg/dL AST (0-40) U/L ALT (0-41) U/L Alkaline Phosphata se (40-130) IU/L Total Protein (6.6-8.7) g/dL Albumin (3.5-5.2) g/dL Globulin (1.3-4.6) g/dL TSH (0.27-4.20) uIU/ mL Urine Color (Yellow) Urine Appearance (CLEAR) Urine pH (5-7) Ur Specific Gravit y (1.005-1.030) Urine Protein (Negative) Urine Glucose (UA) (Normal) Urine Ketones (Negative) Urine Blood (Negative) Urine Nitrate (Negative) Urine Bilirubin (Negative) Urine Urobilinogen (Negative) mg/dL Ur Leukocyte Marlen ase (Negative) Urine RBC (0-2) /hpf Urine WBC (0-5) /hpf Ur Squamous Epith Cells (0-5) /hpf Amorphous Sediment /hpf Urine Bacteria (NONE) /hpf SARS-CoV-2 Ag (Rap id) Negative (Negative) Imaging Data^: CT Abd/Pel: Attestation: I personally reviewed and interpreted this imaging study as follows: Radiologist's impression: [address] [place] [address] CT Scan Report Signed Patient: Watson Webber Unit #: [id number] : 1935 Age/Sex: 85 / M ADM Date: 03/23/21 Loc: ER IP Room/Bed: [place] [address]: Sawyer Pham MD Ordering Provider/Ordering MD: Ashok Mukherjee MD Date of Service: 03/23/21 Procedure(s): CT abdomen pelvis wo con [id number] Accession Number(s): [id number] Report Number: [id number] PROCEDURE INFORMATION: Exam: CT Abdomen And Pelvis Without Contrast Exam date and time: 03/23/2021 2:53 AM Age: 85 years old Clinical indication: Abdominal pain; Generalized; Additional info: Abd pain TECHNIQUE: Imaging protocol: Computed tomography of the abdomen and pelvis without contrast. Radiation optimization: All CT scans at this facility use at least one of these dose optimization techniques: automated exposure control; mA and/or kV adjustment per patient size (includes targeted exams where dose is matched to clinical indication); or iterative reconstruction. COMPARISON: CT abdomen pelvis w con* [id number] 07/01/2020 10:58 PM RADIATION DOSE METRICS: Total DLP (mGy-cm): 1199.05 FINDINGS: Liver: Normal. No mass. Gallbladder and bile ducts: The patient has had a cholecystectomy. Pancreas: Normal. No ductal dilation. Spleen: Normal. No splenomegaly. Adrenal glands: Normal. No mass. Kidneys and ureters: There are cysts in both kidneys, measuring up to 1.0 cm on the right and 1.1 cm on the left. No ureteral stones or obstructive uropathy. Stomach and bowel: Scattered diverticula without evidence of acute diverticulitis or perforation. There has been a right hemicolectomy. Loops of fluid-filled small bowel throughout the abdomen with thickened cuevas consistent with infectious or inflammatory enteritis. Appendix: No evidence of appendicitis. Intraperitoneal space: Unremarkable. No free air. No significant fluid collection. Vasculature: There is severe aortoiliac atherosclerosis. No abdominal aortic aneurysm. Lymph nodes: Unremarkable. No enlarged lymph nodes. Urinary bladder: Unremarkable as visualized. Reproductive: Unremarkable as visualized. Bones/joints: Severe degenerative changes in the lumbar spine. No acute fracture. Soft tissues: There are bilateral inguinal hernias containing mesenteric fat but no bowel. CT/CT abdomen pelvis wo con [id number] IMPRESSION: Probable infectious or inflammatory enteritis. Bilateral renal cysts. Bilateral inguinal hernias. Diverticulosis without acute diverticulitis. Status post cholecystectomy. Severe atherosclerosis. COMMENTS: Consistent with the [employer]'s Incidental Findings Committee white paper (J Am Kuldeep Radiol 2018): Any incidental renal lesion less than 1 cm or classified as too small to characterize, or any incidental cystic renal lesion characterized as simple-appearing, is likely benign. No follow-up imaging is recommended for these lesions per consensus recommendations based on imaging criteria. Radiation Dose CTDIVOL = (mGy): DLP = 1199.05 (mGy-cm) Dictated By: Gregg Grider MD Signed By: Gregg Grider MD Signed Date/Time: 03/23/21351 DD/ 034 CXR: Attestation: I personally reviewed and interpreted this imaging study as follows: Radiologist's impression: [employer] [address] XRay Report Signed Patient: Watson Webber Unit #: [id number] : 1935 Age/Sex: 85 / M ADM Date: 03/23/21 Loc: ER IP Room/Bed: [place] [address]: Sawyer Pham MD Ordering Provider/Ordering MD: Ashok Mukherjee MD Date of Service: 03/22/21 Procedure(s): XR chest 1V portable [id number] Accession Number(s): [id number] Report Number: [id number] PROCEDURE INFORMATION: Exam: XR Chest Exam date and time: 03/22/2021 10:01 PM Age: 85 years old Clinical indication: Device placement; Picc; Additional info: Fever TECHNIQUE: Imaging protocol: XR of the chest. Views: 1 view. COMPARISON: CR (CHEST, ) 03/22/2021 10:29 PM FINDINGS: Tubes, catheters and devices: There has been interval placement of a right internal jugular central venous line with its tip in the SVC right atrial junction. Lungs: Poorly defined probable pneumonia infiltrates at the medial right lung base partially obscuring the cardiac border. Pleural spaces: Unremarkable. No pleural effusion. No pneumothorax. Heart/Mediastinum: Unremarkable. No cardiomegaly. Bones/joints: Unremarkable. XR/XR chest 1V portable [id number] IMPRESSION: Right internal jugular central venous line in appropriate position. Possible right medial lung base pneumonia. Dictated By: Gregg Grider MD Signed By: Gregg Grider MD Signed Date/Time: 03/23/21324 DD/ 2 EKG Data^: EKG 1: Attestation: I personally reviewed and interpreted this EKG as follows: EKG interpretation date: 03/22/21 EKG interpretation time: 22:11 Interpretation: nsr hr [address] or t wave abnormalities qrs 119 qtc 401 Critical Care Time Critical Care Time: Critical Care Time: Yes Total Critical Care Time: 36 Attestation: This case had a high probability of a clinically significant, sudden, or life threatening deterioration of this patient's condition which required my full and direct attention, intervention and personal management. Discharge Plan Discharge Patient Disposition: Admitted As Inpatient Admit Provider: Sawyer Pham Clinical Impression: Septic shock, Acute kidney injury, Weakness, Pneumonia Condition: Stable Coding Level of Care Code ED Occupational Medicine Specialist for Chg Fwd Exam Comprehensive
[2021-03-22 22:23] LABS: Basophils % 0.1 %; Eosinophils % 0.2 %; Lymphocytes # 0.1 10^3/uL (0.8-4.8); Lymphocytes % 0.4 %; Mean Corpuscular HGB Conc 32.6 g/dL (30.0-36.0); Mean Corpuscular Hemoglobin 28.2 pg (28.0-34.0); Mean Corpuscular Volume 86.5 fL (80-94); Mean Platelet Volume 10.2 fL (7.4-10.4); Monocytes # 0.5 10^3/uL (0.2-0.9); Monocytes % 2.1 %; Neutrophils # 22.14 10^3/uL (1.8-7.7); Neutrophils % 96.2 %; Nucleated Red Blood Cells % 0 %; Platelet Count 328 10^3/cmm (130-400); Red Blood Count 4.97 10^6/uL (4.1-5.3); Red Cell Distribution Width 14.6 % (12.1-15.1)
[2021-03-22] MEDS: sodium chloride 0.9% 1,000 ML 999 ML IV ×2 (22:23→23:01)
[2021-03-22 22:33] VITALS: BP 108/45; PULSE 81
[2021-03-22 22:57] LABS: INR 1.17 (0.8-1.2)
[2021-03-22 22:58] LABS: Alanine Aminotransferase 24 U/L (0-41); Alkaline Phosphatase 85 IU/L (40-130); Anion Gap 24.4 (5-19); Aspartate Amino Transferase 47 U/L (0-40); Blood Urea Nitrogen 47 mg/dL (8-23); Calcium 9.4 mg/dL (8.5-10.5); Carbon Dioxide 17 mmol/L (22-29); Chloride 98 mmol/L (98-107); Globulin 3.2 g/dL (1.3-4.6); Glucose 104 mg/dL (65-115); Osmolality Calculated 295 mOsm/kg (285-295); Potassium 3.4 mmol/L (3.5-5.1); Sodium 136 mmol/L (136-145); Total Bilirubin 0.8 mg/dL (0.15-1.2); Total Protein 6.2 g/dL (6.6-8.7)
[2021-03-22 23:00] VITALS: BP 119/58; PULSE 92
[2021-03-22 23:15] LABS: Slide Review Slide Review Perform
[2021-03-22 23:34] LABS: Add Urine Microscopic? YES; Bilirubin Urine Neg (Negative); Blood Urine Neg (Negative); Glucose Urine UA Norm (Normal); Ketones Urine Negative (Negative); Leukocyte Esterase Urine Negative (Negative); Nitrate Urine Negative (Negative); Protein Urine Trace (Negative); Urine Appearance Clear (CLEAR); Urine Color Yellow (Yellow); Urobilinogen Urine Norm (Negative); pH Urine 5 (5-7)
[2021-03-22 23:35] LABS: Add Urine Culture? No; Amorphous Sediment Urine 2+ /hpf; Bacteria Urine TRACE /hpf; RBC Urine 0-4 /hpf (0-2); Squamous Epithelial Cell Urine 0-4 /hpf (0-5); WBC Urine 0-4 /hpf (0-5)
[2021-03-22] MEDS: piperacillin-tazobactam 3.375 GM in sodium chloride 0.9% (plus) 50 ML IV (23:40)
[2021-03-22 23:45] VITALS: PULSE 77; RESP 18; O2SAT 97
[2021-03-22 23:52] LABS: Lactate (Lactic Acid level) 5.7 mmol/L (0.5-2.2)
[2021-03-23] VITALS (33 sets, daily range): BP systolic 76–119; BP diastolic 36–65; PULSE 77–109; RESP 14–28; TEMP 37.2; O2SAT 93–100
[2021-03-23] MEDS: vancomycin 1,000 MG in sodium chloride 0.9% 250 ML 250 MG IV (00:22)
[2021-03-23] MEDS: sodium chloride 0.9% 500 ML 999 ML IV (00:33)
--- NOTE | 2021-03-23 00:37 | P.HP_ITS ---
Providers/Chief Complaint Admitting Physician: Sawyer Pham Primary Care Provider: Brendon Rhodes MD Chief Complaint: GENERALIZED WEAKNESS History of Present Illness Watson Webber is a 85 year old maleOf done prostatic hyperplasia, GI bleed, anemia,Who presented to the hospital with altered mental status patient was apparently recently treated with topical antibiotics for bilateral eye infection. No family at bedside at this history was difficult to obtain.Laboratory workup on arrival showed a WBC of 23.0, hemoglobin of 14.0, hematocrit of 43.0 and a platelet count of 328.Sodium 136, potassium 3.4, chloride 98, bicarb 17, BUN 47 and creatinine of 2.2This was increased from 1.1 in November 2020.Lactic acid was elevated 5.7. Repeat of 3.2 AST of 47, ALT of 24 and alkaline phosphatase 85.COVID-19 antigen was negative.Imaging studies included a CT abdomen pelvis which showed infectious versus inflammatory enteritis.Head CT did not show any evidence of acute abnormality, chest x-ray which showed evidence of possible right medial lung base pneumonia. Patient was started on broad-spectrum antibiotics and admitted.. Review of Systems General: Reports: ROS unobtainable due to medical condition Medications/Allergies Home Medications Medication Instructions Recorded Confirmed Last Taken Type aspirin 81 mg tablet,delayed 81 mg PO DAILY 10/12/19 12/26/20 1 Week Ago History release ~07/08/20 levothyroxine 75 mcg capsule 75 mcg PO DAILY 10/12/19 12/26/20 1 Day Ago History ~07/14/20 ropinirole 1 mg tablet 4 mg PO DAILY tab 10/12/19 12/26/20 07/15/20 04:00 History simvastatin 40 mg tablet 20 mg PO DAILY tab 10/12/19 12/26/20 1 Day Ago History ~07/14/20 triamterene 37.5 1 tab PO DAILY 10/12/19 12/26/20 1 Day Ago History mg-hydrochlorothiazide 25 mg tablet ~07/14/20 Vitamin D3 1 cap PO DAILY 07/01/20 12/26/20 1 Day Ago History ~07/14/20 tamsulosin 0.4 mg PO BID 07/01/20 12/26/20 1 Day Ago History ~07/14/20 ferrous sulfate 325 mg (65 mg 325 mg PO DAILY 08/06/20 12/26/20 Unknown History iron) tablet tramadol 50 mg PO TID PRN #7 tab 12/08/20 12/26/20 Unknown Rx Allergies Allergy/AdvReac Type Severity Reaction Status Date / Time naproxen [From Aleve] Allergy SWELLING Verified 12/26/20 14:08 ROOF OF MOUTH PFSH Acute PFSH: Medical History Abnormal prostate exam Acute blood loss anemia SANTIAGO (acute kidney injury) BPH w urinary obs/LUTS Elevated PSA Family history of prostate cancer Hematochezia History of nonmelanoma skin cancer Lower gastrointestinal hemorrhage Normocytic anemia Surgical History H/O partial resection of colon H/O transurethral resection of prostate H/O umbilical hernia repair H/O: vasectomy History of knee replacement BILATERAL Hx of tonsillectomy Family History Father , AT AGE 75 CHF (congestive heart failure) Mother , AT AGE 92-COMPLICATIONS FROM A FALL No problems noted. Social History Smoking and tobacco status: former smoker Alcohol intake: current Alcohol intake frequency: holidays/special occasions only Marital status: Current occupational status: retired History of recent travel: No Vitals/I&O/Wt Last Vital Signs Temp 98.9 F 03/23/21 04:49 Pulse 92 03/23/21 05:27 Resp 24 H 03/23/21 05:27 BP 104/61 03/23/21 05:27 Pulse Ox 95 03/23/21 05:27 03/22/21 03/22/21 03/23/21 14:59 22:59 06:59 Intake Total 2896.774 / 2896.774 Balance 2896.774 / 2896.774 Weight last 48 hrs Weight 68.039 kg Physical Exam Narrative: EXAM NARRATIVE: General-alert awake however confused HEENT- postop bilateral retinal Opacity CVS normal sinus rhythm Chest -nonlabored respiration Abdomen- soft nontender non STEMI Extremities-no edema Urinary Catheter Management^: Luong Latex Free: Cath Placed During This Visit: yes Urinary Catheter Date of Insertion: 03/23/21 Urinary Catheter Time of Insertion: 02:35 Data : 03/22/21 22:03 03/22/21 22:03 Micro: Microbiology 03/22/21 23:14 Blood Culture - Preliminary Blood SPECIMEN COLLECTED 03/22/21 22:16 Blood Culture - Preliminary Blood SPECIMEN COLLECTED A&P Assessment and plan (1) Acute kidney injury: Creatinine increased to 2.2 Recently was noted to be normal in November IV fluids started Repeat BMP in a.m. Consider nephrology consultation Luong catheter placed in ER Monitor urine output Continue NS Status: Acute (2) Pneumonia: Chest x-ray showed right-sided pneumonia Lactic acid 5.7 Marked leukocytosis Will continue vancomycin Will also continue Zosyn Follow-up on blood and sputum cultures Procalcitonin a.m. Repeat CBC BMP in a.m. Status: Acute Qualifiers: Laterality: right Lung location: middle lobe of lung Pneumonia type: due to unspecified organism Qualified Code(s): J18.9 - Pneumonia, unspecified organism (3) Lactic acidosis: improving Status: Acute (4) Altered mental status: Baseline mental status unclear Discussed with family NPO until speech evaluation or Nursing breath as well in PT OT consultation Status: Acute Attestations Medical Necessity Statement*: Anticipate over 2 midnights stay in hospital for evaluation and treatment of sepsis likely due to pneumonia requiring IV antibiotics Time Spent in Patient Care: Greater than 35 minutes (>than 50% of time spent in counselling and/or direct pt care on unit) . Coding Level of Care Code Acute Food And Nutrition Professor for Swetha Morton Diagnoses Acute kidney injury N17.9 Pneumonia J18.9 Laterality: right Lung location: middle lobe of lung Pneumonia type: due to unspecified organism Lactic acidosis E87.2 Altered mental status R41.82
[2021-03-23 01:40] LABS: SARS Covid-2 Antigen Negative (Negative)
[2021-03-23 01:45] LABS: Lactate (Lactic Acid level) 3.2 mmol/L (0.5-2.2)
--- NOTE | 2021-03-23 02:53 | CTR_ITS ---
PROCEDURE INFORMATION: Exam: CT Abdomen And Pelvis Without Contrast Exam date and time: 03/23/2021 2:53 AM Age: 85 years old Clinical indication: Abdominal pain; Generalized; Additional info: Abd pain TECHNIQUE: Imaging protocol: Computed tomography of the abdomen and pelvis without contrast. Radiation optimization: All CT scans at this facility use at least one of these dose optimization techniques: automated exposure control; mA and/or kV adjustment per patient size (includes targeted exams where dose is matched to clinical indication); or iterative reconstruction. COMPARISON: CT abdomen pelvis w con* [id number] 07/01/2020 10:58 PM RADIATION DOSE METRICS: Total DLP (mGy-cm): 1199.05 FINDINGS: Liver: Normal. No mass. Gallbladder and bile ducts: The patient has had a cholecystectomy. Pancreas: Normal. No ductal dilation. Spleen: Normal. No splenomegaly. Adrenal glands: Normal. No mass. Kidneys and ureters: There are cysts in both kidneys, measuring up to 1.0 cm on the right and 1.1 cm on the left. No ureteral stones or obstructive uropathy. Stomach and bowel: Scattered diverticula without evidence of acute diverticulitis or perforation. There has been a right hemicolectomy. Loops of fluid-filled small bowel throughout the abdomen with thickened cuevas consistent with infectious or inflammatory enteritis. Appendix: No evidence of appendicitis. Intraperitoneal space: Unremarkable. No free air. No significant fluid collection. Vasculature: There is severe aortoiliac atherosclerosis. No abdominal aortic aneurysm. Lymph nodes: Unremarkable. No enlarged lymph nodes. Urinary bladder: Unremarkable as visualized. Reproductive: Unremarkable as visualized. Bones/joints: Severe degenerative changes in the lumbar spine. No acute fracture. Soft tissues: There are bilateral inguinal hernias containing mesenteric fat but no bowel. CT/CT abdomen pelvis wo con [id number] IMPRESSION: Probable infectious or inflammatory enteritis. Bilateral renal cysts. Bilateral inguinal hernias. Diverticulosis without acute diverticulitis. Status post cholecystectomy. Severe atherosclerosis. COMMENTS: Consistent with the [employer] [employer]'s Incidental Findings Committee white paper (J Am Kuldeep Radiol 2018): Any incidental renal lesion less than 1 cm or classified as too small to characterize, or any incidental cystic renal lesion characterized as simple-appearing, is likely benign. No follow-up imaging is recommended for these lesions per consensus recommendations based on imaging criteria. Radiation Dose CTDIVOL = (mGy): DLP = 1199.05 (mGy-cm)
--- NOTE | 2021-03-23 03:25 | PC.PHAR ---
Vancomycin is dosed at 500mg IVPB [facility] 24 hours after initial 1gm dose in ER to produce a predicted trough level of 14.44 (population based pharmacokinetic analysis). A trough level has been ordered from the lab to be obtained before the fourth dose to confirm and adjust if needed.
[2021-03-23] MEDS: sodium chloride 0.9% 1,000 ML 75 ML IV (03:38)
[2021-03-23] MEDS: heparin 5,000 unit/mL INJ 1 mL 5000 UNIT SUBCUT (03:39)
--- NOTE | 2021-03-23 06:57 | W.ED.GENADLT ---
HPI - General Adult General: Chief complaint: ER Hold Stated complaint: GENERALIZED WEAKNESS Time Seen by Provider: 03/22/21 21:53 Source: patient and EMS Mode of arrival: EMS Limitations: altered mental status PFSH ED PFSH: Medical History Abnormal prostate exam Acute blood loss anemia SANTIAGO (acute kidney injury) BPH w urinary obs/LUTS Elevated PSA Family history of prostate cancer Hematochezia History of nonmelanoma skin cancer Lower gastrointestinal hemorrhage Normocytic anemia Surgical History H/O partial resection of colon H/O transurethral resection of prostate H/O umbilical hernia repair H/O: vasectomy History of knee replacement BILATERAL Hx of tonsillectomy Family History Father , AT AGE 75 CHF (congestive heart failure) Mother , AT AGE 92-COMPLICATIONS FROM A FALL No problems noted. Social History Smoking and tobacco status: former smoker Alcohol intake: current Alcohol intake frequency: holidays/special occasions only Marital status: Current occupational status: retired History of recent travel: No Course Vital Signs: Vital signs: Vital Signs Temperature 98.9 F 03/23/21 04:49 Pulse Rate 94 03/23/21 06:30 Respiratory Rate 28 H 03/23/21 06:30 Blood Pressure 103/55 03/23/21 06:30 Pulse Oximetry 95 03/23/21 06:30 MDM - General Adult Lab Data: Labs: Lab Results 03/22/21 03/22/21 03/22/21 Range/Units 22:03 22:03 22:03 WBC 23.0 H (4.0-10.0) 10^3/ uL RBC 4.97 (4.1-5.3) 10^6/u L Hgb 14.0 (11.7-16.6) g/dL Hct 43.0 (42.0-52.0) % MCV 86.5 (80-94) fL MCH 28.2 (28.0-34.0) pg MCHC 32.6 (30.0-36.0) g/dL RDW 14.6 (12.1-15.1) % Plt Count 328 (130-400) 10^3/c mm MPV 10.2 (7.4-10.4) fL Neut % (Auto) 96.2 % Lymph % (Auto) 0.4 % [place] % (Auto) 2.1 % Eos % (Auto) 0.2 % Baso % (Auto) 0.1 % Neut # (Auto) 22.14 H (1.8-7.7) 10^3/u L Lymph # (Auto) 0.1 L (0.8-4.8) 10^3/u L [place] # (Auto) 0.5 (0.2-0.9) 10^3/u L Eos # (Auto) 0.0 (0.0-0.8) 10^3/u L Baso # (Auto) 0.0 (0.0-0.1) 10^3/u L Nucleated RBC % (a uto) 0 % Nucleated RBCs # 0.0 /100WBC PT 15.30 H (12.1-14.9) SECO NDS INR 1.17 (0.8-1.2) Sodium 136 (136-145) mmol/L Potassium 3.4 L (3.5-5.1) mmol/L Chloride 98 (98-107) mmol/L Carbon Dioxide 17 L (22-29) mmol/L Anion Gap 24.4 H (5-19) BUN 47 H (8-23) mg/dL Creatinine 2.2 H (0.7-1.2) mg/dL GFR Calculation Not Reportable Glucose 104 (65-115) mg/dL Calculated Osmolal ity 295 (285-295) mOsm/k g Lactate (0.5-2.2) mmol/L Calcium 9.4 (8.5-10.5) mg/dL Total Bilirubin 0.8 (0.15-1.2) mg/dL AST 47 H (0-40) U/L ALT 24 (0-41) U/L Alkaline Phosphata se 85 (40-130) IU/L Total Protein 6.2 L (6.6-8.7) g/dL Albumin 3.0 L (3.5-5.2) g/dL Globulin 3.2 (1.3-4.6) g/dL TSH (0.27-4.20) uIU/ mL Urine Color (Yellow) Urine Appearance (CLEAR) Urine pH (5-7) Ur Specific Gravit y (1.005-1.030) Urine Protein (Negative) Urine Glucose (UA) (Normal) Urine Ketones (Negative) Urine Blood (Negative) Urine Nitrate (Negative) Urine Bilirubin (Negative) Urine Urobilinogen (Negative) mg/dL Ur Leukocyte Marlen ase (Negative) Urine RBC (0-2) /hpf Urine WBC (0-5) /hpf Ur Squamous Epith Cells (0-5) /hpf Amorphous Sediment /hpf Urine Bacteria (NONE) /hpf SARS-CoV-2 Ag (Rap id) (Negative) 03/22/21 03/22/21 03/22/21 Range/Units 22:03 22:03 22:53 WBC (4.0-10.0) 10^3/ uL RBC (4.1-5.3) 10^6/u L Hgb (11.7-16.6) g/dL Hct (42.0-52.0) % MCV (80-94) fL MCH (28.0-34.0) pg MCHC (30.0-36.0) g/dL RDW (12.1-15.1) % Plt Count (130-400) 10^3/c mm MPV (7.4-10.4) fL Neut % (Auto) % Lymph % (Auto) % [place] % (Auto) % Eos % (Auto) % Baso % (Auto) % Neut # (Auto) (1.8-7.7) 10^3/u L Lymph # (Auto) (0.8-4.8) 10^3/u L [place] # (Auto) (0.2-0.9) 10^3/u L Eos # (Auto) (0.0-0.8) 10^3/u L Baso # (Auto) (0.0-0.1) 10^3/u L Nucleated RBC % (a uto) % Nucleated RBCs # /100WBC PT (12.1-14.9) SECO NDS INR (0.8-1.2) Sodium (136-145) mmol/L Potassium (3.5-5.1) mmol/L Chloride (98-107) mmol/L Carbon Dioxide (22-29) mmol/L Anion Gap (5-19) BUN (8-23) mg/dL Creatinine (0.7-1.2) mg/dL GFR Calculation Glucose (65-115) mg/dL Calculated Osmolal ity (285-295) mOsm/k g Lactate 5.7 H* (0.5-2.2) mmol/L Calcium (8.5-10.5) mg/dL Total Bilirubin (0.15-1.2) mg/dL AST (0-40) U/L ALT (0-41) U/L Alkaline Phosphata se (40-130) IU/L Total Protein (6.6-8.7) g/dL Albumin (3.5-5.2) g/dL Globulin (1.3-4.6) g/dL TSH 6.80 H (0.27-4.20) uIU/ mL Urine Color Yellow (Yellow) Urine Appearance Clear (CLEAR) Urine pH 5 (5-7) Ur Specific Gravit y 1.010 (1.005-1.030) Urine Protein Trace (Negative) Urine Glucose (UA) Norm (Normal) Urine Ketones Negative (Negative) Urine Blood Neg (Negative) Urine Nitrate Negative (Negative) Urine Bilirubin Neg (Negative) Urine Urobilinogen Norm (Negative) mg/dL Ur Leukocyte Marlen ase Negative (Negative) Urine RBC 0-4 H (0-2) /hpf Urine WBC 0-4 H (0-5) /hpf Ur Squamous Epith Cells 0-4 H (0-5) /hpf Amorphous Sediment 2+ /hpf Urine Bacteria Trace (NONE) /hpf SARS-CoV-2 Ag (Rap id) (Negative) 03/23/21 03/23/21 Range/Units 01:13 01:23 WBC (4.0-10.0) 10^3/ uL RBC (4.1-5.3) 10^6/u L Hgb (11.7-16.6) g/dL Hct (42.0-52.0) % MCV (80-94) fL MCH (28.0-34.0) pg MCHC (30.0-36.0) g/dL RDW (12.1-15.1) % Plt Count (130-400) 10^3/c mm MPV (7.4-10.4) fL Neut % (Auto) % Lymph % (Auto) % [place] % (Auto) % Eos % (Auto) % Baso % (Auto) % Neut # (Auto) (1.8-7.7) 10^3/u L Lymph # (Auto) (0.8-4.8) 10^3/u L [place] # (Auto) (0.2-0.9) 10^3/u L Eos # (Auto) (0.0-0.8) 10^3/u L Baso # (Auto) (0.0-0.1) 10^3/u L Nucleated RBC % (a uto) % Nucleated RBCs # /100WBC PT (12.1-14.9) SECO NDS INR (0.8-1.2) Sodium (136-145) mmol/L Potassium (3.5-5.1) mmol/L Chloride (98-107) mmol/L Carbon Dioxide (22-29) mmol/L Anion Gap (5-19) BUN (8-23) mg/dL Creatinine (0.7-1.2) mg/dL GFR Calculation Glucose (65-115) mg/dL Calculated Osmolal ity (285-295) mOsm/k g Lactate 3.2 H (0.5-2.2) mmol/L Calcium (8.5-10.5) mg/dL Total Bilirubin (0.15-1.2) mg/dL AST (0-40) U/L ALT (0-41) U/L Alkaline Phosphata se (40-130) IU/L Total Protein (6.6-8.7) g/dL Albumin (3.5-5.2) g/dL Globulin (1.3-4.6) g/dL TSH (0.27-4.20) uIU/ mL Urine Color (Yellow) Urine Appearance (CLEAR) Urine pH (5-7) Ur Specific Gravit y (1.005-1.030) Urine Protein (Negative) Urine Glucose (UA) (Normal) Urine Ketones (Negative) Urine Blood (Negative) Urine Nitrate (Negative) Urine Bilirubin (Negative) Urine Urobilinogen (Negative) mg/dL Ur Leukocyte Marlen ase (Negative) Urine RBC (0-2) /hpf Urine WBC (0-5) /hpf Ur Squamous Epith Cells (0-5) /hpf Amorphous Sediment /hpf Urine Bacteria (NONE) /hpf SARS-CoV-2 Ag (Rap id) Negative (Negative) Discharge Plan Discharge Patient Disposition: Admitted As Inpatient Admit Provider: Sawyer Pham Clinical Impression: Septic shock, Acute kidney injury, Weakness Pneumonia Qualifiers: Pneumonia type: due to unspecified organism Laterality: right Lung location: middle lobe of lung Qualified Code(s): J18.9 - Pneumonia, unspecified organism Condition: Stable Coding Level of Care Code ED [facility] for Swetha Fwd HPI - General Adult General Chief complaint: ER Hold Stated complaint: GENERALIZED WEAKNESS Time Seen by Provider: 03/22/21 21:53 Source: patient and EMS Mode of arrival: EMS Limitations: altered mental status Related Data Home Medications Medication Instructions Recorded Confirmed aspirin 81 mg tablet,delayed 81 mg PO DAILY 10/12/19 12/26/20 release levothyroxine 75 mcg capsule 75 mcg PO DAILY 10/12/19 12/26/20 ropinirole 1 mg tablet 4 mg PO DAILY tab 10/12/19 12/26/20 simvastatin 40 mg tablet 20 mg PO DAILY tab 10/12/19 12/26/20 triamterene 37.5 1 tab PO DAILY 10/12/19 12/26/20 mg-hydrochlorothiazide 25 mg tablet Vitamin D3 1 cap PO DAILY 07/01/20 12/26/20 tamsulosin 0.4 mg PO BID 07/01/20 12/26/20 ferrous sulfate 325 mg (65 mg 325 mg PO DAILY 08/06/20 12/26/20 iron) tablet Previous Rx's Medication Instructions Recorded tramadol 50 mg PO TID PRN #7 tab 12/08/20 Allergies Allergy/AdvReac Type Severity Reaction Status Date / Time naproxen [From Aleve] Allergy SWELLING Verified 12/26/20 14:08 ROOF OF MOUTH
[2021-03-23] MEDS: piperacillin-tazobactam 3.375 GM in sodium chloride 0.9% (plus) 50 ML IV (08:44)
[2021-03-23] MEDS: pantoprazole 40 mg SDV IVP (08:44)
--- NOTE | 2021-03-23 09:20 | PC.NURSE ---
pt continually removes cardiac leads. he verbalized understanding of importance of wearing the leads but then he removed them after nurse exited room.
--- NOTE | 2021-03-23 10:56 | PM.TDS ---
Transfer Summary Providers Date of Admission: 03/23/21 02:58 Date of Discharge: 03/23/21 Attending Provider at Admission: Sawyer Pham Attending Provider at Transfer: Karl Fang MD Primary Care Provider: Brendon Rhodes MD Anticipated Date of Transfer: Anticipated date of transfer: 03/23/21 Receiving Facility & Provider: Receiving Provider: [Dr. Cabrales] Receiving facility: [[facility]] Diagnoses at Discharge Discharge Diagnosis (1) Acute kidney injury: Status: Acute (2) Pneumonia: Status: Acute Qualifiers: Laterality: right Lung location: middle lobe of lung Pneumonia type: due to unspecified organism Qualified Code(s): J18.9 - Pneumonia, unspecified organism (3) Lactic acidosis: Status: Acute (4) Altered mental status: Status: Acute (5) Septic shock: Status: Acute (6) Weakness: Status: Acute (7) Myasthenia gravis: Status: Acute Reason for Visit Reason for Visit: GENERALIZED WEAKNESS Hospital Course Hospital Course Watson Webber is a 85 year old male with past medical history of myasthenia gravis, prostatic hyperplasia, GI bleed, anemia, who presented to the hospital with altered mental status patient was apparently recently treated with topical antibiotics for bilateral eye infection and has been complaining of increasing blurry vision for the last 3 weeks. As per the patient he has been having increasing weakness for last 2 days as well along with on and off diarrhea. No family at bedside at this history was difficult to obtain. Laboratory workup on arrival showed a WBC of 23.0, hemoglobin of 14.0, hematocrit of 43.0 and a platelet count of 328.Sodium 136, potassium 3.4, chloride 98, bicarb 17, BUN 47 and creatinine of 2.2This was increased from 1.1 in November 2020.Lactic acid was elevated 5.7. Repeat of 3.2 AST of 47, ALT of 24 and alkaline phosphatase 85.COVID-19 antigen was negative. Imaging studies included a CT abdomen pelvis which showed infectious versus inflammatory enteritis.Head CT did not show any evidence of acute abnormality, chest x-ray which showed evidence of possible right medial lung base pneumonia. Patient was admitted to the hospital for further management of septic shock for which he required pressor support. Patient was started on broad-spectrum antibiotics with concerns of sepsis without any known source of infection. Blood cultures and urine cultures were taken and are still preliminary pending. For concerns of myasthenia crisis patient was started on stress dose steroids. Patient was still seen in the ER because of nonavailability of bed in the ICU. While he was waiting in the ER family requested for the patient to be transferred to a different facility where ICU beds are available. After trying multiple facilities he was accepted at [facility]. Patient is been discharged cc per hour with mean arterial pressure of 77 saturating 93% on room air with GCS: Of 13. Physical Exam Narrative: EXAM NARRATIVE: General: No acute distress, AO x 2-3 HEENT: PERRLA, pupils bilaterally equal and reactive, bilateral ecchymosis present. Chest: Normal vesicular breath sounds, no added sounds, equal good air entry bilaterally CVS: S1-S2 regular, no murmurs, no tachycardia, no gallops, no rubs Abdomen: Soft, nontender, no organomegaly, bowel sounds present Neuro: No focal deficits, no facial deformity, AO x3, power 3/5 in all limbs Urinary Catheter Management^: Luong Latex Free: Cath Placed During This Visit: yes Reason for Continuing Indwelling Catheter: Other Urinary Catheter Date of Insertion: 03/23/21 Urinary Catheter Time of Insertion: 02:35 TS Data Data Completed and Pending: Completed Studies During Hospitalization Category Date Time Status CT abdomen pelvis wo con [id number] Urge nt Cat Scan 03/23/21 02:[address] head wo con* [id number] Urgent Cat Scan 03/22/21 22:01 Completed XR chest 1V taz ble [id number] Urgent Exams 03/22/21 22:01 Completed XR chest 1V taz ble [id number] Urgent Exams 03/22/21 22:01 Completed Pending at discharge Category Date Time Status Blood Culture Sta t Lab 03/22/21 23:14 Results Vancomycin Trough Timed Lab 03/27/21 00:00 Ordered Labs from last 24 hours 03/23/21 03/23/21 03/22/21 01:23 01:13 22:53 WBC RBC Hgb Hct MCV MCH MCHC RDW Plt Count MPV Neut % (Auto) Lymph % (Auto) [place]mons[place] % (Auto) Eos % (Auto) Baso % (Auto) Neut # (Auto) Lymph # (Auto) [place]mons[place] # (Auto) Eos # (Auto) Baso # (Auto) Nucleated RBC % (a uto) Nucleated RBCs # PT INR Sodium Potassium Chloride Carbon Dioxide Anion Gap BUN Creatinine GFR Calculation Glucose Calculated Osmolal ity Lactate 3.2 H Calcium Total Bilirubin AST ALT Alkaline Phosphata se Total Protein Albumin Globulin TSH Urine Color Yellow Urine Appearance Clear Urine pH 5 Ur Specific Gravit y 1.010 Urine Protein Trace Urine Glucose (UA) Norm Urine Ketones Negative Urine Blood Neg Urine Nitrate Negative Urine Bilirubin Neg Urine Urobilinogen Norm Ur Leukocyte Marlen ase Negative Urine RBC 0-4 H Urine WBC 0-4 H Ur Squamous Epith Cells 0-4 H Amorphous Sediment 2+ Urine Bacteria Trace SARS-CoV-2 Ag (Rap id) Negative 03/22/21 03/22/21 03/22/21 22:03 22:03 22:03 WBC RBC Hgb Hct MCV MCH MCHC RDW Plt Count MPV Neut % (Auto) Lymph % (Auto) [place] % (Auto) Eos % (Auto) Baso % (Auto) Neut # (Auto) Lymph # (Auto) Edmons[place] # (Auto) Eos # (Auto) Baso # (Auto) Nucleated RBC % (a uto) Nucleated RBCs # PT INR Sodium 136 Potassium 3.4 L Chloride 98 Carbon Dioxide 17 L Anion Gap 24.4 H BUN 47 H Creatinine 2.2 H GFR Calculation Not Reportable Glucose 104 Calculated Osmolal ity 295 Lactate 5.7 H* Calcium 9.4 Total Bilirubin 0.8 AST 47 H ALT 24 Alkaline Phosphata se 85 Total Protein 6.2 L Albumin 3.0 L Globulin 3.2 TSH 6.80 H Urine Color Urine Appearance Urine pH Ur Specific Gravit y Urine Protein Urine Glucose (UA) Urine Ketones Urine Blood Urine Nitrate Urine Bilirubin Urine Urobilinogen Ur Leukocyte Marlen ase Urine RBC Urine WBC Ur Squamous Epith Cells Amorphous Sediment Urine Bacteria SARS-CoV-2 Ag (Rap id) 03/22/21 03/22/21 22:03 22:03 WBC 23.0 H RBC 4.97 Hgb 14.0 Hct 43.0 MCV 86.5 MCH 28.2 MCHC 32.6 RDW 14.6 Plt Count 328 MPV 10.2 Neut % (Auto) 96.2 Lymph % (Auto) 0.4 Edmonson % (Auto) 2.1 Eos % (Auto) 0.2 Baso % (Auto) 0.1 Neut # (Auto) 22.14 H Lymph # (Auto) 0.1 L Edmonson # (Auto) 0.5 Eos # (Auto) 0.0 Baso # (Auto) 0.0 Nucleated RBC % (a uto) 0 Nucleated RBCs # 0.0 PT 15.30 H INR 1.17 Sodium Potassium Chloride Carbon Dioxide Anion Gap BUN Creatinine GFR Calculation Glucose Calculated Osmolal ity Lactate Calcium Total Bilirubin AST ALT Alkaline Phosphata se Total Protein Albumin Globulin TSH Urine Color Urine Appearance Urine pH Ur Specific Gravit y Urine Protein Urine Glucose (UA) Urine Ketones Urine Blood Urine Nitrate Urine Bilirubin Urine Urobilinogen Ur Leukocyte Marlen ase Urine RBC Urine WBC Ur Squamous Epith Cells Amorphous Sediment Urine Bacteria SARS-CoV-2 Ag (Rap id) Addt'l Data from Hospital Stay: Laboratory Results WBC 23.0 10^3/uL (4.0 -10.0) H 03/22/21 22:03 RBC 4.97 10^6/uL (4.1 -5.3) 03/22/21 22:03 Hgb 14.0 g/dL (11.7-1 6.6) 03/22/21 22:03 Hct 43.0 % (42.0-52.0 ) 03/22/21 22:03 MCV 86.5 fL (80-94) 03/22/21 22:03 MCH 28.2 pg (28.0-34. 0) 03/22/21 22:03 MCHC 32.6 g/dL (30.0-3 6.0) 03/22/21 22:03 RDW 14.6 % (12.1-15.1 ) 03/22/21 22:03 Plt Count 328 10^3/cmm (130 -400) 03/22/21 22:03 MPV 10.2 fL (7.4-10.4 ) 03/22/21 22:03 Neut % (Auto) 96.2 % 03/22/21 22:03 Lymph % (Auto) 0.4 % 03/22/21 22:03 Edmonson % (Auto) 2.1 % 03/22/21 22:03 Eos % (Auto) 0.2 % 03/22/21 22:03 Baso % (Auto) 0.1 % 03/22/21 22:03 Neut # (Auto) 22.14 10^3/uL (1. 8-7.7) H 03/22/21 22:03 Lymph # (Auto) 0.1 10^3/uL (0.8- 4.8) L 03/22/21 22:03 Edmonson # (Auto) 0.5 10^3/uL (0.2- 0.9) 03/22/21 22:03 Eos # (Auto) 0.0 10^3/uL (0.0- 0.8) 03/22/21 22:03 Baso # (Auto) 0.0 10^3/uL (0.0- 0.1) 03/22/21 22:03 Nucleated RBC % (a uto) 0 % 03/22/21 22:03 Nucleated RBCs # 0.0 /100WBC 03/22/21 22:03 PT 15.30 SECONDS (12 .1-14.9) H 03/22/21 22:03 INR 1.17 (0.8-1.2) 03/22/21 22:03 Sodium 136 mmol/L (136-1 45) 03/22/21 22:03 Potassium 3.4 mmol/L (3.5-5 .1) L 03/22/21 22:03 Chloride 98 mmol/L (98-107 ) 03/22/21 22:03 Carbon Dioxide 17 mmol/L (22-29) L 03/22/21 22:03 Anion Gap 24.4 (5-19) H 03/22/21 22:03 BUN 47 mg/dL (8-23) H 03/22/21 22:03 Creatinine 2.2 mg/dL (0.7-1. 2) H 03/22/21 22:03 GFR Calculation Not Reportable 03/22/21 22:03 Glucose 104 mg/dL (65-115 ) 03/22/21 22:03 Calculated Osmolal ity 295 mOsm/kg (285- 295) 03/22/21 22:03 Lactate 3.2 mmol/L (0.5-2 .2) H 03/23/21 01:23 Calcium 9.4 mg/dL (8.5-10 .5) 03/22/21 22:03 Total Bilirubin 0.8 mg/dL (0.15-1 .2) 03/22/21 22:03 AST 47 U/L (0-40) H 03/22/21 22:03 ALT 24 U/L (0-41) 03/22/21 22:03 Alkaline Phosphata se 85 IU/L (40-130) 03/22/21 22:03 Total Protein 6.2 g/dL (6.6-8.7 ) L 03/22/21 22:03 Albumin 3.0 g/dL (3.5-5.2 ) L 03/22/21 22:03 Globulin 3.2 g/dL (1.3-4.6 ) 03/22/21 22:03 TSH 6.80 uIU/mL (0.27 -4.20) H 03/22/21 22:03 Urine Color Yellow (Yellow) 03/22/21 22:53 Urine Appearance Clear (CLEAR) 03/22/21 22:53 Urine pH 5 (5-7) 03/22/21 22:53 Ur Specific Gravit y 1.010 (1.005-1.0 30) 03/22/21 22:53 Urine Protein Trace (Negative) 03/22/21 22:53 Urine Glucose (UA) Norm (Normal) 03/22/21 22:53 Urine Ketones Negative (Negati ve) 03/22/21 22:53 Urine Blood Neg (Negative) 03/22/21 22:53 Urine Nitrate Negative (Negati ve) 03/22/21 22:53 Urine Bilirubin Neg (Negative) 03/22/21 22:53 Urine Urobilinogen Norm mg/dL (Negat kalpana) 03/22/21 22:53 Ur Leukocyte Marlen ase Negative (Negati ve) 03/22/21 22:53 Urine RBC 0-4 /hpf (0-2) H 03/22/21 22:53 Urine WBC 0-4 /hpf (0-5) H 03/22/21 22:53 Ur Squamous Epith Cells 0-4 /hpf (0-5) H 03/22/21 22:53 Amorphous Sediment 2+ /hpf 03/22/21 22:53 Urine Bacteria Trace /hpf (NONE) 03/22/21 22:53 SARS-CoV-2 Ag (Rap id) Negative (Negati ve) 03/23/21 01:13 Impressions Chest X-Ray 03/22/21 22:01 IMPRESSION: Right internal jugular central venous line in appropriate position.Possible right medial lung base pneumonia. Head CT 03/22/21 22:01 IMPRESSION: No acute intracranial abnormality. Radiation Dose CTDIVOL = (mGy): DLP = 1022.74 (mGy-cm) Abdomen/Pelvis CT 03/23/21 02:53 IMPRESSION: Probable infectious or inflammatory enteritis. Bilateral renal cysts. Bilateral inguinal hernias. Diverticulosis without acute diverticulitis. Status post cholecystectomy. Severe atherosclerosis. COMMENTS: Consistent with the [employer] [place] [employer]'s Incidental Findings Committee white paper (J Am Kuldeep Radiol 2018): Any incidental renal lesion less than 1 cm or classified as too small to characterize, or any incidental cystic renal lesion characterized as simple-appearing, is likely benign. No follow-up imaging is recommended for these lesions per consensus recommendations based on imaging criteria. Radiation Dose CTDIVOL = (mGy): DLP = 1199.05 (mGy-cm) Microbiology 03/22/21 23:14 Blood Blood Culture - Preliminary SPECIMEN COLLECTED 03/22/21 22:16 Blood Blood Culture - Preliminary SPECIMEN COLLECTED Vitals: Last Vital Signs Temp 98.9 F 03/23/21 04:49 Pulse 109 H 03/23/21 09:02 Resp 28 H 03/23/21 06:30 BP 107/46 03/23/21 09:02 Pulse Ox 93 03/23/21 09:02 TS Medications Medications Home Medications aspirin 81 mg tablet,delayed release 81 mg PO DAILY 10/12/19 [History Confirmed 03/23/21] levothyroxine 75 mcg capsule 75 mcg PO DAILY 10/12/19 [History Confirmed 03/23/21] ropinirole 1 mg tablet 4 mg PO DAILY tab 10/12/19 [History Confirmed 03/23/21] simvastatin 40 mg tablet 20 mg PO DAILY tab 10/12/19 [History Confirmed 03/23/21] triamterene 37.5 mg-hydrochlorothiazide 25 mg tablet 1 tab PO DAILY 10/12/19 [History Confirmed 03/23/21] cholecalciferol (vitamin D3) [Vitamin D3] 25 mcg PO DAILY #0 07/01/20 [History Confirmed 03/23/21] tamsulosin 0.4 mg PO BID 07/01/20 [History Confirmed 03/23/21] ferrous sulfate 325 mg (65 mg iron) tablet 325 mg PO DAILY 08/06/20 [History Confirmed 03/23/21] tramadol 50 mg PO TID PRN #7 tab 12/08/20 [Rx Confirmed 03/23/21] pyridostigmine bromide 60 mg PO QID 03/23/21 [History Confirmed 03/23/21] Active Medications Heparin Sodium (Beef Lung) (Heparin 5,000 Unit/Ml Inj 1 Ml) 5,000 unit SUBCUT Q12H [facility] Last Admin: 03/23/21 03:39 Dose: 5,000 unit Documented by: Norepinephrine Bitartrate 4 mg (/ Dextrose) 254 mls @ 0 mls/hr IV .Q0M KEISHA; Protocol Last Admin: 03/23/21 06:49 Dose: 18 mcg/min, 68.58 mls/hr Documented by: Sodium Chloride (Sodium Chloride 0.9%) 1,000 mls @ 75 mls/hr IV .[id number] [facility] Last Infusion: 03/23/21 06:30 Dose: 75 mls/hr Documented by: Vancomycin HCl 500 mg/ Sodium (Chloride) 100 mls @ 100 mls/hr IV Q24H KEISHA; Protocol Piperacillin Sod/Tazobactam (Sod 3.375 gm/ Sodium Chloride) 50 mls @ 12.5 mls/hr IV Q8H KEISHA; Protocol Last Admin: 03/23/21 08:44 Dose: 12.5 mls/hr Documented by: Ondansetron HCl (Ondansetron 2 Mg/Ml Sdv 2 Ml) 4 mg IVP Q6H PRN PRN Reason: NAUSEA AND VOMITING Pantoprazole Sodium (Pantoprazole 40 Mg Sdv) 40 mg IVP DAILY [facility] Last Admin: 03/23/21 08:44 Dose: 40 mg Documented by: Discharge Plan Discharge Patient Disposition: Home Condition: Stable Prescriptions: No Action simvastatin 40 mg tablet 20 mg PO DAILY RF: 0 aspirin 81 mg tablet,delayed release (DR/EC) 81 mg PO DAILY RF: 0 Hold Instructions: Resume on 07/10/20. ropinirole 1 mg tablet 4 mg PO DAILY RF: 0 levothyroxine 75 mcg capsule 75 mcg PO DAILY RF: 0 triamterene-hydrochlorothiazid 37.5-25 mg tablet 1 tab PO DAILY RF: 0 ferrous sulfate 325 mg (65 mg iron) tablet 325 mg PO DAILY RF: 0 cholecalciferol (vitamin D3) [Vitamin D3] 25 mcg (1,000 unit) Capsule 25 mcg PO DAILY Qty: 0 RF: 0 tamsulosin 0.4 mg capsule 0.4 mg PO BID RF: 0 tramadol 50 mg tablet 50 mg PO TID PRN (Reason: pain) Qty: 7 RF: 0 pyridostigmine bromide 60 mg tablet 60 mg PO QID RF: 0 azathioprine 50 mg tablet 50 mg PO BID RF: 0 Discharge Orders: Transfer Out of Facility (Order); Ordered 03/23/21 Ordered By: Karl Fang Referrals: Brendon Rhodes MD [Primary Care Provider] - Discharge Diet: Regular Discharge Activity: Resume usual activity Patient Instructions: Opioid Safety Transfer Attestations Time Spent in Transfer Care*: greater than 30 min Specific Discharge Activities: Specific discharge activities: educating and/or supporting family/caregiver, discussing with pcp/other providers, discussing with rn field case manager/social workers/dc planners, documenting/other paperwork and evaluating patient/reviewing data Status at Transfer: Cognitive status at transfer: cognitively intact, Behavioral status at transfer: cooperative, Overall status at transfer: patient is not back to baseline Quality Metrics Clinical Quality Measures: During this hospital stay, did patient experience: None Coding Level of Care Code Acute [employer] [facility] Fwd Diagnoses Acute kidney injury N17.9 Pneumonia J18.9 Laterality: right Lung location: middle lobe of lung Pneumonia type: due to unspecified organism Lactic acidosis E87.2 Altered mental status R41.82 Septic shock A41.9; R65.21 Weakness R53.1 Myasthenia gravis G70.00
[2021-03-23] MEDS: atorvastatin 40 mg Tablet 20 MG PO (12:51)
[2021-03-23] MEDS: aspirin 81 mg EC Tablet PO (12:51)
[2021-03-23] MEDS: ferrous sulfate EC 325 mg Tablet PO (12:51)
[2021-03-23] MEDS: ropinirole 1 mg Tablet 4 MG PO (12:52)
[2021-03-23] MEDS: levothyroxine 75 mcg Tablet PO (12:53)
[2021-03-23] MEDS: pyridostigmine 60 mg Tablet PO (12:53)
== END 2021-03-23 13:22 | disposition short-term general hospital (02) | DRG 871 ==
LOC: ER 03-23 02:50 → ER IP 03-23 03:21
PROVIDERS: Emergency Medicine; Admitting Provider Hospitalist; Emergency Provider Emergency Medicine; PCP Family Medicine; Visit Provider Hospitalist
DX: A41.9 Sepsis, unspecified organism (principal); R65.21 Severe sepsis with septic shock; J18.9 Pneumonia, unspecified organism; G70.01 Myasthenia gravis with (acute) exacerbation; N17.9 Acute kidney failure, unspecified; E87.2 Acidosis; I95.9 Hypotension, unspecified; W19.XXXA Unspecified fall, initial encounter; N40.1 Benign prostatic hyperplasia with lower urinary tract symptoms; Z80.42 Family history of malignant neoplasm of prostate; Z85.828 Personal history of other malignant neoplasm of skin; Z90.49 Acquired absence of other specified parts of digestive tract; Z90.79 Acquired absence of other genital organ(s); Z96.653 Presence of artificial knee joint, bilateral; Z87.891 Personal history of nicotine dependence; R41.82 Altered mental status, unspecified; Z79.82 Long term (current) use of aspirin
CPT/HCPCS: 36415; 51702; 70450; 71045; 74176; 80053; 81001; 83605; 84443; 85025; 85610; 87040; 87426; 93005; 96365; 96366; 96367; 96372; 96375; 99285; C1751; C9113; J1644; J2543; J2930; J3370; J7030; J7040; J7050